=== PATIENT | female | born 1945 | race Caucasian/White ===

== ENCOUNTER 2016-08-04 16:26 | Emergency (ER) | payer MEDICARE, OTHER ==
[~2016-08-04] VITALS: Ht 160 cm; Wt 76.4 kg
[~2016-08-04 16:26] MED LIST: 00186-0372-20 IH; ADVAIR IH; ALBUTEROL0.83 MG/ML IH; ANTIVERT 25MG25 MG PO; ASTELIN NASAL S34 ML NAS; ASTELIN NASAL S34 ML NS; AZO YEAST 6 X-61 TAB PO; AZO-STANDARD95 MG PO; BENADRYL25 M2 PO; BLOOD PRESSURE; CALAN120 MG PO; CALCIUM PLUS1 TA1 PO; CATAPRES-TTS 10.1 M1 TD; CETIRIZINE; CLOTRIMAZOLE RC; CRANBERRY FRUI405 MG PO; DIOVAN 160MG160 MG PO; DOXEPIN; GLUCOPHAGE XR500 M1 PO; LASIX 20MG TABL20 MG PO; LORTAB PO; MELOXICAM; METFORMIN; MOBIC 7.5MG7.5 MG PO; NASAL 15 ML15 M1 INH; NEXIUM 40MG40 MG PO; NEXIUM PO; NORCO; NORCO 325 MG-51 TAB PO; NORCO 325 MG-7.1 TAB PO; PERCOCET 325 MG1 TA2 PO; PREMARIN 0.60.625 M1 PO; PROAIR HFA0.09 MG/AC IH; PROBIOTIC FORMU1 CAP PO; PROVENTIL0.09 MG/A1 IH; RHINOCORT0.032 MG/1 NS; RT ADVAIR 128 DISKUS IH; SINEQUAN 1010 MG/CAP PO; SINEQUAN 1100 MG/CAP PO; SINGULAIR; SINGULAIR 110 MG/TAB PO; ULTRAM 50MG TAB50 MG PO; URELLE PO; VERELAN PM200 MG PO; VITAMIN D1000 IU PO; ZITHROMAX Z PA250 MG PO; ZYRTEC 10MG10 MG PO; ZYRTEC ALLERGY10 MG PO; [UNRECOGNIZED DRUG - OTHER] PO
[2016-08-04 16:28] VITALS: BP 119/59; PULSE 96; TEMP 100.6
[2016-08-04 18:47] LABS: BASO % 0.6 % (0.0-2.0); GRAN # 5.3 (1.4-6.5); GRAN % 75.1 % (42.2-75.2); LYMPH # 0.8 (1.2-3.4); LYMPH % 10.9 % (20.0-51.0); MEAN CELL VOLUME 86 fl (80.0-100.0); MEAN CORPUSCULAR HGB CONC 32 g/dl (33.0-37.0); MEAN PLATELET VOLUME 11.2 fl (7.4-10.4); MONO # 0.9 (0.1-0.6); PLATELET COUNT 177 K/mm3 (130-400); RED BLOOD COUNT 3.98 M/mm3 (4.10-5.30); REDCELL DISTRIBUTION WIDTH-CV 14.3 % (11.5-14.5); WHITE BLOOD COUNT 7.1 K/mm3 (4.8-10.8)
[2016-08-04 18:54] LABS: ADJUSTED CALCIUM 9.2 mg/dL (8.4-10.2); ALBUMIN 3.7 gm/dL (3.5-5.0); BILIRUBIN,TOTAL 0.6 mg/dL (0.0-1.0); CREATININE, serum 1.44 mg/dL (0.52-1.25); POTASSIUM 3.4 mmol/L (3.4-5.0); TOTAL PROTEIN 6.8 gm/dL (6.4-8.2)
[2016-08-04 18:56] LABS: HEMATOCRIT 34.4 % (37.0-47.0); HEMOGLOBIN 11.1 g/dl (12.5-16.0); MEAN CORPUSCULAR HEMOGLOBIN 28 pg (27.0-31.0)
[2016-08-04] MEDS ORDERED: MEDROL 4MG DOSPA4 MG PO (21:41)
[2016-08-04] MEDS ORDERED: TAMIFLU 75MG75 MG PO (21:42)
[2016-08-04] MEDS ORDERED: TUSS PO (21:42)
== END 2016-08-04 22:08 | disposition home or self-care (01) ==
LOC: COL.ER 16:26
PROVIDERS: Emergency Medicine
DX: J44.0 Chronic obstructive pulmonary disease with (acute) lower respiratory infection (principal); J20.9 Acute bronchitis, unspecified; J44.1 Chronic obstructive pulmonary disease with (acute) exacerbation; E11.9 Type 2 diabetes mellitus without complications; I10 Essential (primary) hypertension
CPT/HCPCS: J0696; J7030

== ENCOUNTER 2016-08-11 14:57 | Inpatient (IN) | payer MEDICARE, OTHER ==
[2016-08-11] VITALS (131 sets, daily range): BP systolic 139; BP diastolic 65; PULSE 83; TEMP 97.5; O2SAT 85–100
[~2016-08-11] VITALS: Ht 162.6 cm; Wt 81.1 kg
[~2016-08-11 14:57] MED LIST changes: +MEDROL 4MG DOSPA4 MG PO; +TAMIFLU 75MG75 MG PO; +TUSS PO
[2016-08-11 15:48] LABS: ANION GAP 16 mmol/L (7-16); BLOOD UREA NITROGEN 28 mg/dL (7-17); CALCIUM 9.3 mg/dL (8.4-10.2); CARBON DIOXIDE 22 mmol/L (22-30); CHLORIDE 99 mmol/L (98-107); CREATININE, serum 1.98 mg/dL (0.52-1.25); GLUCOSE 150 mg/dL (74-106); HEMATOCRIT 42.6 % (37.0-47.0); HEMOGLOBIN 13.9 g/dl (12.5-16.0); MEAN CELL VOLUME 86 fl (80.0-100.0); MEAN CORPUSCULAR HEMOGLOBIN 28 pg (27.0-31.0); MEAN CORPUSCULAR HGB CONC 33 g/dl (33.0-37.0); MEAN PLATELET VOLUME 10.7 fl (7.4-10.4); PLATELET COUNT 332 K/mm3 (130-400); POTASSIUM 3.6 mmol/L (3.4-5.0); RED BLOOD COUNT 4.97 M/mm3 (4.10-5.30); REDCELL DISTRIBUTION WIDTH-CV 14.4 % (11.5-14.5); SODIUM 136 mmol/L (137-145); WHITE BLOOD COUNT 12.3 K/mm3 (4.8-10.8)
[2016-08-11 15:54] LABS: ADD PATHOLOGY DIFF REVIEW NO
[2016-08-11 16:00] LABS: B-TYPE NATRIURETIC PEPTIDE 1450 pg/mL (0-125)
[2016-08-11 16:04] LABS: TROPONIN-I < 0.012 ng/mL (0.000-0.034)
[2016-08-11 16:35] LABS: VENOUS BLOOD GAS BE -3.9 (-4-4); VENOUS BLOOD GAS SAO2 32.5 % (60-80)
[2016-08-11 16:37] LABS: VENOUS BLOOD GAS SITE VENIPUNCTURE
[2016-08-11 17:16] LABS: BAND 12 % (0-10); EOSINOPHIL 2 % (0-4); METAMYELOCYTE 2 % (0-0); NEUTROPHILS 53 % (42.0-75.2); TOTAL CELLS COUNTED 100
[2016-08-11 17:18] LABS: HYPOCHROMIA 1+
[2016-08-11 17:24] LABS: PH 5 (5-8); SQUAMOUS EPITHELIAL 0-2 /hpf; URINE APPEARANCE Clear; URINE BACTERIA None Seen /hpf; URINE BILIRUBIN Negative (NEGATIVE); URINE BLOOD Negative (NEGATIVE); URINE COLOR Yellow; URINE GLUCOSE Negative (NEGATIVE); URINE KETONE Negative (NEGATIVE); URINE RBC 0-2 /hpf; URINE UROBILINOGEN Negative (NEGATIVE)
[2016-08-12] VITALS (574 sets, daily range): BP systolic 135–161; BP diastolic 58–98; PULSE 64–83; TEMP 98–98.8; O2SAT 88–100
[2016-08-12 06:18] LABS: BASO % 0.4 % (0.0-2.0); GRAN # 8.3 (1.4-6.5); HEMATOCRIT 39.8 % (37.0-47.0); HEMOGLOBIN 12.7 g/dl (12.5-16.0); LYMPH # 1.6 (1.2-3.4); LYMPH % 14.4 % (20.0-51.0); MEAN CELL VOLUME 88 fl (80.0-100.0); MEAN CORPUSCULAR HEMOGLOBIN 28 pg (27.0-31.0); MEAN CORPUSCULAR HGB CONC 32 g/dl (33.0-37.0); MEAN PLATELET VOLUME 10.4 fl (7.4-10.4); MONO # 0.1 (0.1-0.6); MONO % 1.1 % (1.7-9.3); PLATELET COUNT 308 K/mm3 (130-400); RED BLOOD COUNT 4.55 M/mm3 (4.10-5.30); REDCELL DISTRIBUTION WIDTH-CV 14.5 % (11.5-14.5); WHITE BLOOD COUNT 10.9 K/mm3 (4.8-10.8)
[2016-08-12 06:29] LABS: CREATININE, serum 1.04 mg/dL (0.52-1.25); POTASSIUM 4.1 mmol/L (3.4-5.0)
[2016-08-13 00:16] VITALS: BP 137/39; PULSE 77; TEMP 98.5
[2016-08-13 02:34] VITALS: BP 119/90; PULSE 75; TEMP 97.7
[2016-08-13 08:06] VITALS: BP 143/46; PULSE 63; TEMP 97.1
[2016-08-13 11:44] VITALS: BP 126/49; PULSE 78; TEMP 98.2
[2016-08-13 15:42] VITALS: BP 155/66; PULSE 88; TEMP 98.8
[2016-08-13 18:02] LABS: CALCIUM 9.1 mg/dL (8.4-10.2); CREATININE, serum 0.96 mg/dL (0.52-1.25)
== END 2016-08-13 16:52 | disposition home or self-care (01) | DRG 682 ==
LOC: COL.ER 14:57 → IMCU 16:44 → MEDICAL 08-12 19:52
PROVIDERS: Emergency Medicine; Internal Medicine Cardiovascular Disease; Nurse Practitioner Family
DX: N17.9 Acute kidney failure, unspecified (principal); R57.1 Hypovolemic shock; E87.2 Acidosis; M79.7 Fibromyalgia; J45.909 Unspecified asthma, uncomplicated; I10 Essential (primary) hypertension; K58.9 Irritable bowel syndrome, unspecified; E11.9 Type 2 diabetes mellitus without complications
CPT/HCPCS: 99223-AI; 99233-AI; 99239; A9284; J0456; J0696; J1644; J1815; J2930; J7030; J7050

== ENCOUNTER 2016-09-29 09:15 | Day surgery (SDC) | payer MEDICARE, OTHER ==
[~2016-09-29] VITALS: Ht 162.6 cm; Wt 72.5 kg
[2016-09-29 10:00] VITALS: BP 152/66; PULSE 97; TEMP 97.7
[2016-09-29] MEDS ORDERED: CALAN80 MG PO (10:10)
[2016-09-29] MEDS ORDERED: CATAPRES 0.1MG0.1 MG PO (10:10)
[2016-09-29] MEDS ORDERED: PRIL40 PO (10:12)
[2016-09-29] MEDS ORDERED: SUDAFED30 MG PO (10:13)
[2016-09-29] MEDS ORDERED: ALBUTEROL1.25 MG/3 IH (10:16)
[2016-09-29] MEDS ORDERED: URELLE PO (10:17)
[2016-09-29] MEDS ORDERED: COMPOUND DRUG (10:23)
[2016-09-29] MEDS ORDERED: CALCIUM 600MG+D1 TAB PO (10:29)
[2016-09-29 11:10] VITALS: BP 144/63; PULSE 95
[2016-09-29 11:25] VITALS: BP 159/52; PULSE 87
[2016-09-29 11:30] LABS: BASO # 0.1 (0.0-0.2); BASO % 0.7 % (0.0-2.0); EOS % 0.4 % (0-4.0); GRAN # 7.2 (1.4-6.5); GRAN % 74.9 % (42.2-75.2); HEMOGLOBIN 12.3 g/dl (12.5-16.0); LYMPH # 1.5 (1.2-3.4); LYMPH % 15.4 % (20.0-51.0); MEAN CELL VOLUME 88 fl (80.0-100.0); MEAN CORPUSCULAR HEMOGLOBIN 28 pg (27.0-31.0); MEAN CORPUSCULAR HGB CONC 32 g/dl (33.0-37.0); MEAN PLATELET VOLUME 10.3 fl (7.4-10.4); MONO # 0.7 (0.1-0.6); MONO % 7.3 % (1.7-9.3); PLATELET COUNT 282 K/mm3 (130-400); RED BLOOD COUNT 4.45 M/mm3 (4.10-5.30); REDCELL DISTRIBUTION WIDTH-CV 15.7 % (11.5-14.5); WHITE BLOOD COUNT 9.6 K/mm3 (4.8-10.8)
[2016-09-29 11:40] VITALS: BP 165/52; PULSE 87
[2016-09-29 11:55] VITALS: BP 148/48; PULSE 86
[2016-09-29 12:03] LABS: ADJUSTED CALCIUM 9.8 mg/dL (8.4-10.2); ALBUMIN 3.9 gm/dL (3.5-5.0); BILIRUBIN,TOTAL 0.7 mg/dL (0.0-1.0); CALCIUM 9.7 mg/dL (8.4-10.2); CREATININE, serum 0.93 mg/dL (0.52-1.25); POTASSIUM 4.5 mmol/L (3.4-5.0); TOTAL PROTEIN 7.1 gm/dL (6.4-8.2)
[2016-09-29 13:22] VITALS: BP 143/73; PULSE 80
== END 2016-09-29 13:00 | disposition home or self-care (01) ==
LOC: SDCO 09:15
PROVIDERS: Internal Medicine Pulmonary Disease
DX: J98.11 Atelectasis (principal); J32.9 Chronic sinusitis, unspecified; J45.909 Unspecified asthma, uncomplicated; Z87.01 Personal history of pneumonia (recurrent); M79.7 Fibromyalgia; I10 Essential (primary) hypertension; K21.9 Gastro-esophageal reflux disease without esophagitis; E11.9 Type 2 diabetes mellitus without complications; M19.90 Unspecified osteoarthritis, unspecified site; K58.9 Irritable bowel syndrome, unspecified; G47.33 Obstructive sleep apnea (adult) (pediatric)
CPT/HCPCS: J0456; J2704; J2920; J7050; J7120

== ENCOUNTER → 2017-02-09 | Outpatient (CLI) | payer MEDICARE, OTHER ==
[~2017-02-09] VITALS: Ht 162.6 cm; Wt 72.7 kg
[~2017-02-09] MED LIST changes: +ALBUTEROL1.25 MG/3 IH; +CALAN80 MG PO; +CALCIUM 600MG+D1 TAB PO; +CATAPRES 0.1MG0.1 MG PO; +COMPOUND DRUG; +PRIL40 PO; +SUDAFED30 MG PO
[2017-02-09 11:59] VITALS: BP 135/67; PULSE 85
[2017-02-09 13:06] VITALS: BP 153/67; PULSE 64
== END ==
LOC: COL.RAD 11:40
DX: M48.061 Spinal stenosis, lumbar region without neurogenic claudication (principal); M51.16 Intervertebral disc disorders with radiculopathy, lumbar region

== ENCOUNTER → 2017-08-07 | Outpatient (CLI) | payer MEDICARE, OTHER | LOC: COL.RAD 08:58 | DX: M79.641 Pain in right hand (principal) | CPT/HCPCS: J3301; Q9967 ==

== ENCOUNTER → 2017-08-13 | Outpatient (CLI) | payer MEDICARE, OTHER ==
[~2017-08-13] VITALS: Ht 162.6 cm; Wt 75.6 kg
[2017-08-13 09:00] VITALS: BP 155/70; PULSE 88
[2017-08-13 10:05] VITALS: BP 145/70; PULSE 71
== END ==
LOC: COL.RAD 08:36
DX: M54.5 Low back pain (principal)
CPT/HCPCS: J3301

== ENCOUNTER 2017-12-05 18:20 | Inpatient (IN) | payer MEDICARE, OTHER ==
[~2017-12-05] VITALS: Ht 162.6 cm; Wt 80.3 kg
[2017-12-05 18:53] LABS: BASO # 0.1 (0.0-0.2); BASO % 0.3 % (0.0-2.0); EOS % 0.1 % (0-4.0); GRAN # 15.3 (1.4-6.5); GRAN % 83.4 % (42.2-75.2); HEMOGLOBIN 13.7 g/dl (12.5-16.0); LYMPH # 1.3 (1.2-3.4); LYMPH % 7.3 % (20.0-51.0); MEAN CELL VOLUME 88 fl (80.0-100.0); MEAN CORPUSCULAR HEMOGLOBIN 29 pg (27.0-31.0); MEAN CORPUSCULAR HGB CONC 33 g/dl (33.0-37.0); MEAN PLATELET VOLUME 10.4 fl (7.4-10.4); MONO # 1.6 (0.1-0.6); MONO % 8.4 % (1.7-9.3); PLATELET COUNT 234 K/mm3 (130-400); RED BLOOD COUNT 4.76 M/mm3 (4.10-5.30); REDCELL DISTRIBUTION WIDTH-CV 13.3 % (11.5-14.5)
[2017-12-05 19:02] LABS: ALBUMIN 4.2 gm/dL (3.5-5.0); BILIRUBIN,TOTAL 0.8 mg/dL (0.0-1.0); CALCIUM 9.6 mg/dL (8.4-10.2); CREATININE, serum 1.3 mg/dL (0.52-1.25); POTASSIUM 4.4 mmol/L (3.4-5.0); TOTAL PROTEIN 7.2 gm/dL (6.4-8.2)
[2017-12-05 19:13] LABS: C-REACTIVE PROTEIN 20.2 mg/dL (0.0-0.9)
[2017-12-05 19:30] LABS: COLLECTION METHOD CLEAN CATCH
[2017-12-05 19:43] LABS: PH 5 (5-8); SQUAMOUS EPITHELIAL 0-2 /hpf; URINE APPEARANCE Clear; URINE BACTERIA None Seen /hpf; URINE BILIRUBIN Negative (NEGATIVE); URINE BLOOD Negative (NEGATIVE); URINE COLOR Yellow; URINE GLUCOSE Negative (NEGATIVE); URINE KETONE Negative (NEGATIVE); URINE LEUKOCYTE ESTERASE 1+ (NEGATIVE); URINE NITRATE Negative (NEGATIVE); URINE PROTEIN(semi-quant) 1+ (NEGATIVE); URINE UROBILINOGEN Negative (NEGATIVE)
[2017-12-05] MEDS ORDERED: CARAFATE 1GM1 G PO (19:45)
[2017-12-05] MEDS ORDERED: ZOCOR 20MG20 MG PO (19:46)
[2017-12-05] MEDS ORDERED: FLEXERIL 1010 MG/TAB PO (19:47)
[2017-12-05] MEDS ORDERED: LIBRAX CAPSULE1 CAP PO (19:47)
[2017-12-05] MEDS ORDERED: URELLE PO (20:02)
[2017-12-05] MEDS ORDERED: PRILOSEC 20MG20 MG PO (20:23)
[2017-12-05] MEDS ORDERED: MUCUS RELIEF400 M1 PO (20:24)
[2017-12-05] MEDS ORDERED: VERELAN PM200 MG PO (20:24)
[2017-12-05] MEDS ORDERED: IMODIUM MULTI-S1 TAB PO (20:25)
[2017-12-05] MEDS ORDERED: SINGULAIR 110 MG/TAB PO (20:25)
[2017-12-05] MEDS ORDERED: THE MEDICINE SH1 T18 PO (20:26)
[2017-12-05] MEDS ORDERED: LASIX 20MG TABL20 MG PO (20:26)
[2017-12-05] MEDS ORDERED: ZYRTEC 10MG10 MG PO (20:26)
[2017-12-05 23:07] VITALS: BP 153/58; PULSE 85; TEMP 99
[2017-12-06] MEDS ORDERED: LIBRAX CAPSULE1 CAP PO (00:04)
[2017-12-06 03:35] VITALS: BP 145/54; PULSE 85; TEMP 98.1
[2017-12-06 06:22] LABS: BASO # 0.1 (0.0-0.2); BASO % 0.6 % (0.0-2.0); EOS # 0.1 (0.0-0.7); EOS % 0.6 % (0-4.0); GRAN % 79.9 % (42.2-75.2); LYMPH # 1.2 (1.2-3.4); LYMPH % 9.4 % (20.0-51.0); MEAN CELL VOLUME 89 fl (80.0-100.0); MEAN CORPUSCULAR HGB CONC 32 g/dl (33.0-37.0); MEAN PLATELET VOLUME 10.8 fl (7.4-10.4); MONO # 1.1 (0.1-0.6); MONO % 9.1 % (1.7-9.3); PLATELET COUNT 188 K/mm3 (130-400); RED BLOOD COUNT 3.96 M/mm3 (4.10-5.30); REDCELL DISTRIBUTION WIDTH-CV 13.3 % (11.5-14.5)
[2017-12-06 06:29] LABS: HEMATOCRIT 35.4 % (37.0-47.0); HEMOGLOBIN 11.3 g/dl (12.5-16.0); MEAN CORPUSCULAR HEMOGLOBIN 29 pg (27.0-31.0)
[2017-12-06 07:19] LABS: CALCIUM 8.5 mg/dL (8.4-10.2)
[2017-12-06 08:02] VITALS: BP 130/51; PULSE 76; TEMP 97.9
[2017-12-06 11:43] VITALS: BP 140/45; PULSE 78; TEMP 98
[2017-12-06 16:00] VITALS: BP 142/51; PULSE 80; TEMP 97.4
[2017-12-06 20:30] VITALS: BP 154/52; PULSE 87; TEMP 98.2
[2017-12-07 00:48] VITALS: BP 131/48; PULSE 79; TEMP 98
[2017-12-07 05:12] VITALS: BP 133/53; PULSE 70
[2017-12-07 07:01] LABS: BASO # 0.1 (0.0-0.2); BASO % 0.7 % (0.0-2.0); EOS # 0.2 (0.0-0.7); EOS % 2.6 % (0-4.0); GRAN # 5.2 (1.4-6.5); GRAN % 71.4 % (42.2-75.2); HEMOGLOBIN 10.9 g/dl (12.5-16.0); LYMPH # 1.2 (1.2-3.4); LYMPH % 15.8 % (20.0-51.0); MEAN CELL VOLUME 91 fl (80.0-100.0); MEAN CORPUSCULAR HEMOGLOBIN 29 pg (27.0-31.0); MEAN CORPUSCULAR HGB CONC 32 g/dl (33.0-37.0); MONO # 0.7 (0.1-0.6); MONO % 8.9 % (1.7-9.3); PLATELET COUNT 174 K/mm3 (130-400); RED BLOOD COUNT 3.82 M/mm3 (4.10-5.30); REDCELL DISTRIBUTION WIDTH-CV 13.3 % (11.5-14.5)
[2017-12-07 07:02] LABS: HEMATOCRIT 34.6 % (37.0-47.0)
[2017-12-07 07:17] LABS: CALCIUM 8.3 mg/dL (8.4-10.2); CREATININE, serum 0.88 mg/dL (0.52-1.25)
[2017-12-07 08:01] VITALS: BP 148/63; PULSE 80; TEMP 97.6
[2017-12-07 12:18] VITALS: BP 128/50; PULSE 68; TEMP 98
[2017-12-07 16:22] VITALS: BP 147/66; PULSE 68; TEMP 98.2
[2017-12-07 19:57] VITALS: BP 153/59; PULSE 69; TEMP 98.3
[2017-12-08 00:44] VITALS: BP 152/60; PULSE 70; TEMP 98.4
[2017-12-08 04:20] VITALS: BP 137/58; PULSE 62; TEMP 97.8
[2017-12-08 08:03] VITALS: BP 143/73; PULSE 66; TEMP 97.5
[2017-12-08] MEDS ORDERED: NYSTATIN OR100 MU/ML PO (11:38)
[2017-12-08] MEDS ORDERED: CEFTIN500 MG PO (11:38)
[2017-12-08] MEDS ORDERED: FLAGYL500 MG PO (11:38)
== END 2017-12-08 14:00 | disposition home or self-care (01) | DRG 394 ==
LOC: COL.ER 18:20 → MEDICAL 20:41
PROVIDERS: Family Medicine; Hospitalist; Nurse Practitioner Family
DX: K55.9 Vascular disorder of intestine, unspecified (principal); A09 Infectious gastroenteritis and colitis, unspecified; N17.9 Acute kidney failure, unspecified; N39.0 Urinary tract infection, site not specified; E87.1 Hypo-osmolality and hyponatremia; K82.8 Other specified diseases of gallbladder
CPT/HCPCS: 99222-AI; 99232-AI; 99238; C9113; G0378; J0696; J1170; J2185; J2550; J3370; J7030; J7050

== ENCOUNTER 2017-12-28 08:27 | Day surgery (SDC) | payer MEDICARE, OTHER ==
[~2017-12-28] VITALS: Ht 162.6 cm; Wt 75.5 kg
[~2017-12-28 08:27] MED LIST changes: +CARAFATE 1GM1 G PO; +CEFTIN500 MG PO; +FLAGYL500 MG PO; +FLEXERIL 1010 MG/TAB PO; +IMODIUM MULTI-S1 TAB PO; +LIBRAX CAPSULE1 CAP PO; +MUCUS RELIEF400 M1 PO; +NYSTATIN OR100 MU/ML PO; +THE MEDICINE SH1 T18 PO; +ZOCOR 20MG20 MG PO
[2017-12-28] MEDS ORDERED: ALBUTEROL0.83 MG/ML IH (08:59)
[2017-12-28] MEDS ORDERED: BENTYL 10MG10 MG/CAP PO (09:10)
[2017-12-28] MEDS ORDERED: VANCOCIN H125 MG/CAP PO (09:10)
[2017-12-28 10:50] VITALS: BP 173/97; PULSE 90; TEMP 97.4
[2017-12-28 11:40] VITALS: BP 169/87; PULSE 80; TEMP 97.2
[2017-12-28 11:55] VITALS: BP 166/87; PULSE 79
[2017-12-28 12:10] VITALS: BP 176/93; PULSE 87
[2017-12-28 12:25] VITALS: BP 176/77; PULSE 83
[2017-12-28 12:40] VITALS: BP 170/70; PULSE 90
== END 2017-12-28 13:00 | disposition home or self-care (01) ==
LOC: SDCO 08:27
DX: K51.80 Other ulcerative colitis without complications (principal); K64.0 First degree hemorrhoids; K57.30 Diverticulosis of large intestine without perforation or abscess without bleeding; K63.89 Other specified diseases of intestine; K21.9 Gastro-esophageal reflux disease without esophagitis; G89.29 Other chronic pain; G47.33 Obstructive sleep apnea (adult) (pediatric); J45.909 Unspecified asthma, uncomplicated; I10 Essential (primary) hypertension; M79.7 Fibromyalgia; Z86.010 Personal history of colon polyps; Z88.1 Allergy status to other antibiotic agents; Z88.2 Allergy status to sulfonamides; Z88.0 Allergy status to penicillin; Z88.6 Allergy status to analgesic agent; Z88.3 Allergy status to other anti-infective agents
CPT/HCPCS: J2704; J7030

== ENCOUNTER → 2018-05-17 | Outpatient (CLI) | payer MEDICARE, OTHER ==
[~2018-05-17] MED LIST changes: +BENTYL 10MG10 MG/CAP PO; +VANCOCIN H125 MG/CAP PO
== END ==
LOC: COL.RAD 13:24
DX: M79.641 Pain in right hand (principal)
CPT/HCPCS: J3301; Q9967

== ENCOUNTER → 2018-05-24 | Outpatient (CLI) | payer MEDICARE, OTHER ==
[~2018-05-24] VITALS: Ht 162.6 cm; Wt 74.9 kg
[~2018-05-24] MED LIST changes: +AZO-CRANBERRY450 MG PO; +COZAAR100 MG PO
[2018-05-24 13:35] VITALS: BP 144/67; PULSE 77
--- NOTE | 2018-05-24 14:39 | NUR ---
PT TAKEN TO POV IN WHEELCHAIR. NO PAIN, NO DIFFICULTY WITH AMBULATION.
== END ==
LOC: COL.RAD 13:17
DX: M48.061 Spinal stenosis, lumbar region without neurogenic claudication (principal); M51.36 Other intervertebral disc degeneration, lumbar region
CPT/HCPCS: J3301

== ENCOUNTER 2018-05-30 13:53 | Emergency (ER) | payer MEDICARE, OTHER ==
[~2018-05-30] VITALS: Ht 162.6 cm; Wt 75.9 kg
[2018-05-30 14:06] VITALS: BP 144/65; TEMP 98.7
[2018-05-30 16:02] VITALS: PULSE 91
== END 2018-05-30 16:02 | disposition home or self-care (01) ==
LOC: COL.ER 13:53
DX: S40.011A Contusion of right shoulder, initial encounter (principal); S70.01XA Contusion of right hip, initial encounter; S60.211A Contusion of right wrist, initial encounter; J45.909 Unspecified asthma, uncomplicated; M79.7 Fibromyalgia; W00.0XXA Fall on same level due to ice and snow, initial encounter; Y92.481 Parking lot as the place of occurrence of the external cause

== ENCOUNTER 2018-12-01 13:04 | Emergency (ER) | payer MEDICARE, OTHER ==
[~2018-12-01] VITALS: Ht 157.5 cm; Wt 79.5 kg
[2018-12-01 13:13] VITALS: TEMP 99.4
[2018-12-01 14:04] LABS: HEMOGLOBIN 11.8 g/dl (12.5-16.0); MEAN CELL VOLUME 89 fl (80.0-100.0); MEAN CORPUSCULAR HEMOGLOBIN 28 pg (27.0-31.0); MEAN CORPUSCULAR HGB CONC 32 g/dl (33.0-37.0); MEAN PLATELET VOLUME 10.4 fl (7.4-10.4); PLATELET COUNT 241 K/mm3 (130-400); RED BLOOD COUNT 4.15 M/mm3 (4.10-5.30); REDCELL DISTRIBUTION WIDTH-CV 13.2 % (11.5-14.5)
[2018-12-01 14:14] LABS: ALANINE AMINOTRANSFERASE 16 U/L (9-52); ALBUMIN 3.7 gm/dL (3.5-5.0); ALKALINE PHOSPHATASE 125 U/L (50-136); ANION GAP 10 mmol/L (7-16); AST,SGOT 23 U/L (15-37); BILIRUBIN,TOTAL 0.2 mg/dL (0.0-1.0); BLOOD UREA NITROGEN 22 mg/dL (7-17); C-REACTIVE PROTEIN 1.2 mg/dL (0.0-0.9); CALCIUM 8.9 mg/dL (8.4-10.2); CARBON DIOXIDE 23 mmol/L (22-30); CHLORIDE 99 mmol/L (98-107); CREATININE, serum 1.04 (0.52-1.25); GLUCOSE 98 mg/dL (74-106); LIPASE 431 U/L (23-300); POTASSIUM 4.7 mmol/L (3.4-5.0); SODIUM 132 mmol/L (137-145); TOTAL PROTEIN 6.3 gm/dL (6.4-8.2)
[2018-12-01 14:16] LABS: SALICYLATE < 1.0 mg/dL
[2018-12-01 14:26] LABS: TROPONIN-I < 0.012 ng/mL (0.000-0.035)
[2018-12-01 14:41] LABS: COLLECTION METHOD CLEAN CATCH
[2018-12-01 14:50] LABS: PH 6 (5-8); SQUAMOUS EPITHELIAL None Seen /hpf; URINE APPEARANCE Clear; URINE BACTERIA None Seen /hpf; URINE BILIRUBIN Negative (NEGATIVE); URINE BLOOD Negative (NEGATIVE); URINE COLOR Straw; URINE GLUCOSE Negative (NEGATIVE); URINE KETONE Negative (NEGATIVE); URINE LEUKOCYTE ESTERASE Negative (NEGATIVE); URINE NITRATE Negative (NEGATIVE); URINE PROTEIN(semi-quant) Negative (NEGATIVE); URINE RBC 0-2 /hpf; URINE UROBILINOGEN Negative (NEGATIVE)
[2018-12-01] MEDS ORDERED: VOLTAREN GEL 1%1 TU TP (15:01)
[2018-12-01] MEDS ORDERED: ANTIVERT 12.512.5 MG PO (15:35)
[2018-12-01 15:54] VITALS: BP 141/61; PULSE 74
[2018-12-01 16:34] LABS: BAND 2 % (0-10); EOSINOPHIL 4 % (0-4); LYMPHOCYTE 12 % (20.0-51.0); NEUTROPHILS 80 % (42.0-75.2); PLATELET ESTIMATE NORMAL (NORMAL)
[2018-12-06] MEDS ORDERED: VANCOCIN H125 MG/CAP PO (02:06)
== END 2018-12-01 15:54 | disposition home or self-care (01) ==
LOC: COL.ER 13:04
PROVIDERS: Physician Assistant
DX: R42 Dizziness and giddiness (principal); I10 Essential (primary) hypertension; J45.909 Unspecified asthma, uncomplicated; K21.9 Gastro-esophageal reflux disease without esophagitis
CPT/HCPCS: J7030; Q9967

== ENCOUNTER → 2018-12-05 | Outpatient (CLI) | payer MEDICARE, OTHER ==
[~2018-12-05] MED LIST changes: +ANTIVERT 12.512.5 MG PO; +VOLTAREN GEL 1%1 TU TP
== END ==
LOC: ZCOL.LAB 21:33
DX: Z01.89 Encounter for other specified special examinations (principal)

== ENCOUNTER → 2019-02-22 | Outpatient (CLI) | payer MEDICARE, OTHER | LOC: COL.RAD 14:15 | DX: N30.21 Other chronic cystitis with hematuria (principal); N26.1 Atrophy of kidney (terminal) ==

== ENCOUNTER → 2019-04-01 | Outpatient (CLI) | payer MEDICARE, OTHER ==
[~2019-04-01] VITALS: Ht 157.5 cm; Wt 77.7 kg
[2019-04-01 10:05] VITALS: BP 139/70; PULSE 78
[2019-04-01 11:00] VITALS: BP 134/70; PULSE 66
--- NOTE | 2019-04-01 11:23 | NUR ---
Discharge instructions gone over with pt. Pt verbalized understanding of instructions. Copy given to pt.
--- NOTE | 2019-04-01 11:30 | NUR ---
Pt down to patient entrance to await ride. Pt up and into car without assistance. Denies complaints at this time.
== END ==
LOC: COL.RAD 08:24
DX: M19.041 Primary osteoarthritis, right hand (principal); M54.5 Low back pain
CPT/HCPCS: J3301; Q9967

== ENCOUNTER 2019-06-14 09:08 | Outpatient (CLI) | payer MEDICARE, OTHER ==
[~2019-06-14 09:08] MED LIST changes: +ANUSOL-HC SUPPO25 MG RC; +LEVAQUIN 750MG750 M1 PO; +PROTONIX 40MG T40 MG PO
[2019-06-14 09:50] VITALS: BP 151/61; PULSE 75; TEMP 98.3
--- NOTE | 2019-06-14 12:17 | NUR ---
Pt to CT at this time.
== END 2019-06-14 13:57 | disposition home or self-care (01) ==
LOC: EUO 09:08 → COL.RAD 11:30 → EUO 13:57
DX: K55.039 Acute (reversible) ischemia of large intestine, extent unspecified (principal); G31.9 Degenerative disease of nervous system, unspecified; N18.9 Chronic kidney disease, unspecified; I77.1 Stricture of artery; I70.0 Atherosclerosis of aorta; M41.85 Other forms of scoliosis, thoracolumbar region; Z90.710 Acquired absence of both cervix and uterus
CPT/HCPCS: J7030; Q9967

== ENCOUNTER 2019-07-17 07:25 | Observation (INO) | payer MEDICARE, OTHER ==
[~2019-07-17] VITALS: Ht 160 cm; Wt 76.5 kg
[~2019-07-17 07:25] MED LIST changes: +VERELAN180 MG PO
[2019-07-17 08:55] LABS: HEMOGLOBIN 11.3 g/dl (12.5-16.0); MEAN CELL VOLUME 91 fl (80.0-100.0); MEAN CORPUSCULAR HEMOGLOBIN 28 pg (27.0-31.0); MEAN CORPUSCULAR HGB CONC 31 g/dl (33.0-37.0); MEAN PLATELET VOLUME 10.7 fl (7.4-10.4); PLATELET COUNT 318 K/mm3 (130-400); RED BLOOD COUNT 3.99 M/mm3 (4.10-5.30); REDCELL DISTRIBUTION WIDTH-CV 14.3 % (11.5-14.5)
[2019-07-17 08:57] LABS: HEMATOCRIT 36.3 % (37.0-47.0)
[2019-07-17 09:04] LABS: BILIRUBIN,TOTAL 0.4 mg/dL (0.0-1.0); C-REACTIVE PROTEIN 1.5 mg/dL (0.0-0.9); CALCIUM 9.5 mg/dL (8.4-10.2); CREATININE, serum 1.27 (0.52-1.25); POTASSIUM 4.8 mmol/L (3.4-5.0); TOTAL PROTEIN 7.1 gm/dL (6.4-8.2)
[2019-07-17] MEDS ORDERED: CARAFATE 1GM1 G PO (09:10)
[2019-07-17 09:11] LABS: COLLECTION METHOD CLEAN CATCH
[2019-07-17] MEDS ORDERED: PLAVIX 75MG TAB75 MG PO (09:16)
[2019-07-17 09:17] LABS: PH 6 (5-8); SQUAMOUS EPITHELIAL 0-2 /hpf; URINE APPEARANCE Clear; URINE BACTERIA None Seen /hpf; URINE BILIRUBIN Negative (NEGATIVE); URINE BLOOD Negative (NEGATIVE); URINE COLOR Straw; URINE GLUCOSE Negative (NEGATIVE); URINE KETONE Negative (NEGATIVE); URINE LEUKOCYTE ESTERASE Negative (NEGATIVE); URINE NITRATE Negative (NEGATIVE); URINE PROTEIN(semi-quant) Negative (NEGATIVE); URINE RBC 0-2 /hpf; URINE UROBILINOGEN Negative (NEGATIVE)
[2019-07-17] MEDS ORDERED: ASPIRIN E.C. 8181 MG PO (09:17)
[2019-07-17] MEDS ORDERED: TOPROL XL 25MG25 MG (09:18)
[2019-07-17] MEDS ORDERED: BENICAR40 MG PO (09:21)
[2019-07-17] MEDS ORDERED: GAVISCON 80 MG-1 CT1 PO (09:22)
[2019-07-17 09:34] LABS: BAND 8 % (0-10); EOSINOPHIL 2 % (0-4); LYMPHOCYTE 4 % (20.0-51.0); NEUTROPHILS 76 % (42.0-75.2); PLATELET ESTIMATE NORMAL (NORMAL)
[2019-07-17] MEDS ORDERED: DIFLUCAN150 MG PO (10:47)
[2019-07-17] MEDS ORDERED: ZOFRAN ODT4 MG PO (10:47)
[2019-07-17] MEDS ORDERED: AVELOX 400MG T400 MG PO (10:47)
[2019-07-17] MEDS ORDERED: PERCOCET 325 MG1 TA3 PO (10:47)
--- NOTE | 2019-07-17 12:30 | NUR ---
Admission assessment completed, alert/oriente, vital signs stable, reports pain still moderate but much improved after having recieving Dilaudid doses in the ED, abdomen is soft /tender in left upper/lower quadrants, BS +, reports not eating well for last few weeks due to increasing pain, has been having regular bowel movments, denies any N/V or diarrhea, heart RRR, lungS CTA, patient is able to ambulate independently, reviewed and updated meds/allergies/pharmacy, notified of her arrival to the medical floor
[2019-07-17 14:00] VITALS: BP 148/58; PULSE 75
[2019-07-17 15:49] VITALS: BP 159/54; PULSE 74; TEMP 98
[2019-07-17 20:44] VITALS: BP 122/47; PULSE 81; TEMP 98.2
[2019-07-18 00:43] VITALS: BP 135/45; PULSE 75; TEMP 98.3
--- NOTE | 2019-07-18 01:25 | NUR ---
PT IN BED SLEEPING, YL HUNG, PT WOKE UP, ASKED IF SHE WANTED PAIN MEDICATIONS, SHE SAID PAIN WAS AT 6/10 BUT SHE WANTED TO WAIT TO RECIEVE ANYTHING. PT REPORTS KPAD IS HELPING PAIN AND THAT SHE IS ALSO HAVING INDIGESTION. DRAFTING SUPERVISOR NOTIFIED OF PT REQUEST FOR INDIGESTION MEDICATION.
--- NOTE | 2019-07-18 01:30 | NUR ---
PT COMPLAINING OF PAIN 10/10 IN HER RECTUM. THEN PT STATED PAIN IN LLQ, NOT WHERE BLOOD CLOT IS. ADMINISTERED DILAUDID. PT ASSESSMENT UNREMARKABLE. PT GOT UP TO USE RESTROOM, REPORTED BLOOD SPOTTING FROM RECTUM UPON WIPING. PT THEN BACK IN BED, REQUESTED KPAD. PT TABLE AND CALL LIGHT AND PHONE WITHIN REACH. GAVE MEDICATIONS, PROVIDED EXTENSIVE TIME WITH PT AND HER DAUGHTER TO GIVE NAME AND DOSAGE OF EACH MEDICATION WHILE THEY COMPARED THEM TO HER HOME MEDICATIONS. MEMBERSHIP ASSISTANT CALLED ABOUT KPAD.
--- NOTE | 2019-07-18 04:20 | NUR ---
PT STILL COMPLAINING OF EXTREME PAIN DESPITE DILAUDID ADMINISTRATION. 2 NORCO TABS ADMINISTERED.
[2019-07-18 05:49] VITALS: BP 119/41; PULSE 76; TEMP 98.8
[2019-07-18 06:21] LABS: HEMOGLOBIN 10.3 g/dl (12.5-16.0); MEAN CELL VOLUME 92 fl (80.0-100.0); MEAN CORPUSCULAR HEMOGLOBIN 29 pg (27.0-31.0); MEAN CORPUSCULAR HGB CONC 31 g/dl (33.0-37.0); MEAN PLATELET VOLUME 10.9 fl (7.4-10.4); PLATELET COUNT 296 K/mm3 (130-400); REDCELL DISTRIBUTION WIDTH-CV 14.5 % (11.5-14.5)
[2019-07-18 06:29] LABS: ALBUMIN 3.2 gm/dL (3.5-5.0); BILIRUBIN,TOTAL 0.3 mg/dL (0.0-1.0); CALCIUM 8.5 mg/dL (8.4-10.2); CREATININE, serum 0.97 (0.52-1.25); POTASSIUM 4.2 mmol/L (3.4-5.0)
[2019-07-18 06:33] LABS: HEMATOCRIT 33.2 % (37.0-47.0)
[2019-07-18 07:01] LABS: BAND 9 % (0-10); BASOPHIL 1 % (0-2); EOSINOPHIL 2 % (0-4); LYMPHOCYTE 11 % (20.0-51.0); METAMYELOCYTE 1 % (0-0); NEUTROPHILS 69 % (42.0-75.2); PLATELET ESTIMATE NORMAL (NORMAL)
[2019-07-18 07:02] LABS: HYPOCHROMIA 1+
--- NOTE | 2019-07-18 09:21 | NUR ---
Initial visit; Patient remembers Hand Braille Transcriber from former visit and thanked her for coming in and offering prayer and God's blessings. Hand Braille Transcriber will follow up.
--- NOTE | 2019-07-18 09:30 | NUR ---
Pt states she is having LLQ pain rating it a 10/10. Dilaudid administered and KPad reviewed. Pt ambulated to the bathroom well with stand by assist. Pt noted small bowel movement.
[2019-07-18 09:33] VITALS: BP 106/41; PULSE 70; TEMP 98.2
[2019-07-18 11:27] VITALS: BP 105/44; PULSE 68; TEMP 97.8
--- NOTE | 2019-07-18 11:30 | NUR ---
Pt at 90% on room air at this time. Pt placed on 2L NC, pt is now at 94% with 2L.
--- NOTE | 2019-07-18 15:18 | NUR ---
RA SPO2 A SLEEP 85%. PACED BACK ON 2 LPM NC 92% RN NOTIFIED
--- NOTE | 2019-07-18 15:42 | NUR ---
Patient is alert and oriented. 1+ edema in upper extremity. complains of pain in the rectum and left side abdomen that started in May. Paatient said she was diagnosed with blood clot in the artery near her stomach in May alongside colon infection. currently on MetroniDazole. Patient is not able to eat solid food at this moment due to severe pain. Patient recieved dilaudid and norco one time on this shift patient is currently on clear liquid. Patient have a new order for suppository hudrocortisol for rectum pain as need. administered one time on this shift. patient refused verapamil this morning because systolic was <110. 0.9%NS was discontinued by doctor Yi this morning. patient is currently resting in bed.
[2019-07-18 15:57] VITALS: BP 137/46; PULSE 79; TEMP 98.8
--- NOTE | 2019-07-18 16:36 | NUR ---
SW met with the patient to discuss discharge plan. The patient lives alone in [place]. She states that her daughter, Araseli Estrella (ph#[phone]), also lives here in [place]. She reports independence with ADLs and does not have any DME. The patient's PCP is Dr. Radha Tubbs and she receives her medications at [facility]. She reports occasional difficulties affording her meds. SW discussed [facility] and [facility]. The patient's advanced directives are in EMR. Her DPOA-HC is her daughter, Araseli. The patient plans to return back home upon discharge. No other additional needs at this time, but SW to continue to follow as needed.
[2019-07-18 20:00] VITALS: BP 131/45; PULSE 71; TEMP 98.5
--- NOTE | 2019-07-18 23:05 | NUR ---
PT REPORTING EXTREME PAIN 10/10. PT TOOK ORAL MEDICATIONS AND DILAUDID WAS ADMINISTERED. BED IN LOWEST POSITION, TABLE AT BEDSIDE, CALL LIGHT WITHIN REACH, WATER AT BEDSIDE. PT KPAD WATER BIN FULL, CHECKED PER PT REQUEST. DENIES ANY OTHER NEEDS AT THIS TIME.
[2019-07-19 00:40] VITALS: BP 112/45; PULSE 67; TEMP 98
--- NOTE | 2019-07-19 00:49 | NUR ---
PT'S OXYGEN INC TO 2L DUE TO INABILITY TO SAT ABOVE 89%.
[2019-07-19 04:06] VITALS: BP 121/52; PULSE 65; TEMP 97.7
[2019-07-19 06:56] LABS: BILIRUBIN,TOTAL 0.3 mg/dL (0.0-1.0); CALCIUM 8.5 mg/dL (8.4-10.2); CREATININE, serum 1.1 (0.52-1.25); POTASSIUM 4.5 mmol/L (3.4-5.0); TOTAL PROTEIN 5.8 gm/dL (6.4-8.2)
[2019-07-19 06:59] LABS: BASO # 0.1 (0.0-0.2); BASO % 0.9 % (0.0-2.0); EOS # 0.6 (0.0-0.7); EOS % 5.1 % (0-4.0); GRAN # 7.4 (1.4-6.5); GRAN % 67.2 % (42.2-75.2); LYMPH # 1.4 (1.2-3.4); LYMPH % 12.7 % (20.0-51.0); MEAN CELL VOLUME 93 fl (80.0-100.0); MEAN CORPUSCULAR HGB CONC 31 g/dl (33.0-37.0); MEAN PLATELET VOLUME 10.6 fl (7.4-10.4); MONO # 1.5 (0.1-0.6); MONO % 13.5 % (1.7-9.3); PLATELET COUNT 285 K/mm3 (130-400); RED BLOOD COUNT 3.48 M/mm3 (4.10-5.30); REDCELL DISTRIBUTION WIDTH-CV 14.4 % (11.5-14.5)
[2019-07-19 07:05] LABS: HEMATOCRIT 32.4 % (37.0-47.0); HEMOGLOBIN 9.9 g/dl (12.5-16.0); MEAN CORPUSCULAR HEMOGLOBIN 28 pg (27.0-31.0)
--- NOTE | 2019-07-19 07:34 | NUR ---
PT SLEPT MOST OF THE NIGHT, ASKED FOR PAIN MEDICATION ONCE, CLAIMS THE PAIN IS MUCH MORE MANAGEABLE NOW, TALKING ABOUT WANTING TO GO HOME. BED IN LOWEST POSITION, CALL LIGHT WITHIN REACH, TABLE AT BEDSIDE WITH ICE WATER. NO OTHER NEEDS AT THIS TIME.
[2019-07-19 08:47] VITALS: BP 114/46; PULSE 64; TEMP 97.5
--- NOTE | 2019-07-19 09:57 | NUR ---
Pt awake and alert upon entry, has C/O pain in her abdominal area, medications given for relief, shift assessments complete, left Pt call light in reach, bed in lowest position.
--- NOTE | 2019-07-19 10:54 | NUR ---
Follow-up visit; Patient thanked Seamless Tube Mill Operator for stopping and offering spiritual care, especially a blessings.
[2019-07-19] MEDS ORDERED: LEVAQUIN 750MG750 M1 PO (12:19)
[2019-07-19] MEDS ORDERED: FLAGYL500 MG PO (12:20)
[2019-07-19] MEDS ORDERED: NORCO 325 MG-101 TAB PO (12:20)
--- NOTE | 2019-07-19 14:16 | NUR ---
Pt discharged to home, discussed discharge packet with PT, answered all questions, escorted Pt to entrance, left with family via private transportation.
== END 2019-07-19 14:18 | disposition home or self-care (01) ==
LOC: COL.ER 07:25 → MEDICAL 12:04
PROVIDERS: Emergency Medicine; Physician Assistant; ADMIT Student in an Organized Health Care Education/Training Program
DX: K57.32 Diverticulitis of large intestine without perforation or abscess without bleeding (principal); K55.9 Vascular disorder of intestine, unspecified; I10 Essential (primary) hypertension; J44.9 Chronic obstructive pulmonary disease, unspecified; R73.03 Prediabetes; Z88.0 Allergy status to penicillin; Z88.2 Allergy status to sulfonamides; Z88.8 Allergy status to other drugs, medicaments and biological substances; Z91.018 Allergy to other foods; Z91.048 Other nonmedicinal substance allergy status; Z79.02 Long term (current) use of antithrombotics/antiplatelets; Z79.82 Long term (current) use of aspirin; Z90.710 Acquired absence of both cervix and uterus; Z96.652 Presence of left artificial knee joint
CPT/HCPCS: 99232-AI; G0378; J1170; J1650; J1956; J2405; J7030; J7040; Q9967

== ENCOUNTER 2019-10-02 05:49 | Inpatient (IN) | payer MEDICARE, OTHER ==
[~2019-10-02] VITALS: Ht 160 cm; Wt 79.0 kg
[~2019-10-02 05:49] MED LIST changes: +ASPIRIN E.C. 8181 MG PO; +AVELOX 400MG T400 MG PO; +BENICAR40 MG PO; +DIFLUCAN150 MG PO; +GAVISCON 80 MG-1 CT1 PO; +NORCO 325 MG-101 TAB PO; +OMNICEF 300MG300 MG PO; +PERCOCET 325 MG1 TA3 PO; +PLAVIX 75MG TAB75 MG PO; +TOPROL XL 25MG25 MG; +ZOFRAN ODT4 MG PO
[2019-10-02 06:25] LABS: HEMATOCRIT 41.1 % (37.0-47.0); HEMOGLOBIN 12.8 g/dl (12.5-16.0); MEAN CELL VOLUME 89 fl (80.0-100.0); MEAN CORPUSCULAR HEMOGLOBIN 28 pg (27.0-31.0); MEAN CORPUSCULAR HGB CONC 31 g/dl (33.0-37.0); MEAN PLATELET VOLUME 10.3 fl (7.4-10.4); PLATELET COUNT 324 K/mm3 (130-400); REDCELL DISTRIBUTION WIDTH-CV 14.3 % (11.5-14.5)
[2019-10-02 06:35] LABS: ALBUMIN 4.6 gm/dL (3.5-5.0); BILIRUBIN,TOTAL 0.4 mg/dL (0.0-1.0); CALCIUM 10.2 mg/dL (8.4-10.2); CREATININE, serum 1.08 (0.52-1.25); POTASSIUM 5.3 mmol/L (3.4-5.0)
[2019-10-02 08:21] LABS: BAND 23 % (0-10); BASOPHIL 1 % (0-2); LYMPHOCYTE 4 % (20.0-51.0); NEUTROPHILS 69 % (42.0-75.2)
[2019-10-02 08:24] LABS: PLATELET ESTIMATE NORMAL (NORMAL)
[2019-10-02 08:26] LABS: HYPOCHROMIA 1+
[2019-10-02 10:46] VITALS: BP 130/58; PULSE 102; TEMP 98.9
[2019-10-02 10:51] VITALS: BP 130/58; PULSE 102; TEMP 98.9
--- NOTE | 2019-10-02 11:00 | NUR ---
Pt admitted to medical unit rm [id number] from ED via WC. Pt awake, drowsy, oriented x 3 but falls asleep quickly during assessment. IVF's infusing per orders through left AC site without s/s of complications. Pt reports pain to left abd, stating "the pain will always be there until my surgery. The pain medicine doesn't really help, just makes me sleepy." No further needs reported. Call light in reach. Bed alarm on.
[2019-10-02 11:44] LABS: CLOSTRIDIUM DIFF A/B POS; CLOSTRIDIUM DIFF A/B INTERP Toxigenic C.diff POS
--- NOTE | 2019-10-02 14:49 | NUR ---
Pt assisted up to bathroom with standby assist, continued drowsiness. Pt reports soreness to left abd whenever awake but falls asleep quickly when in bed, stating, "the pain medicine makes me very sleepy."
[2019-10-02 15:56] VITALS: BP 160/55; PULSE 96; TEMP 98.8
--- NOTE | 2019-10-02 18:30 | NUR ---
Report with JOHNSON Brandt. Pt resting in bed with eyes closed upon entry into , awakens with stimuli and states, "I'm starting to have diarrhea so I'll probably be going to the bathroom a lot over night." IVF's continue per orders. Call light in reach. Bed alarm on.
[2019-10-02 19:03] VITALS: BP 156/61; PULSE 95; TEMP 98.7
--- NOTE | 2019-10-02 20:30 | NUR ---
Initial shift assessment done- states abd pain 02/17- will give Morphine as ordered- Up to bathroom with assist- having loose stools, on contact precautioms for positive c-diff, IV fluids of NS at 125cc/hr, Tele on
[2019-10-03] VITALS (7 sets, daily range): BP systolic 127–156; BP diastolic 42–57; PULSE 82–96; TEMP 97.8–100
--- NOTE | 2019-10-03 01:00 | NUR ---
States abd pain 01/18- will give Morphine as ordered,, has been up to bathroom for small amounts loose/liquid stool every 30min- 1 hour throughout shift
--- NOTE | 2019-10-03 05:30 | NUR ---
Has a temp 100.0, also states abd pain 01/18-was given Morphine at 0400, will give a [place] now to help with temp/pain. Up to bathroom again- only voided this time-
--- NOTE | 2019-10-03 08:15 | NUR ---
Assessment complete. Pt back resting in bed after using the bathroom, answers questions appropriately but drowsy throughout conversation. Pt reports pain to left abd 8 out of 10 but denies pain medication at this time. IVF's infusing per orders through left AC site without s/s of complications. O2 at 2 L/min via NC while pt in bed. No further needs reported. Call light in reach. Bed alarm on.
[2019-10-03 08:19] LABS: MEAN CELL VOLUME 89 fl (80.0-100.0); MEAN CORPUSCULAR HGB CONC 32 g/dl (33.0-37.0); MEAN PLATELET VOLUME 10.7 fl (7.4-10.4); PLATELET COUNT 248 K/mm3 (130-400); RED BLOOD COUNT 3.38 M/mm3 (4.10-5.30); REDCELL DISTRIBUTION WIDTH-CV 14.6 % (11.5-14.5)
[2019-10-03 08:25] LABS: ALBUMIN 2.8 gm/dL (3.5-5.0); BILIRUBIN,TOTAL 0.4 mg/dL (0.0-1.0); CALCIUM 8.1 mg/dL (8.4-10.2); CREATININE, serum 0.81 (0.52-1.25); POTASSIUM 3.9 mmol/L (3.4-5.0); TOTAL PROTEIN 5.6 gm/dL (6.4-8.2)
[2019-10-03 08:28] LABS: HEMATOCRIT 30.2 % (37.0-47.0); HEMOGLOBIN 9.6 g/dl (12.5-16.0); MEAN CORPUSCULAR HEMOGLOBIN 28 pg (27.0-31.0)
[2019-10-03 10:09] LABS: BAND 9 % (0-10); LYMPHOCYTE 7 % (20.0-51.0); NEUTROPHILS 82 % (42.0-75.2); PLATELET ESTIMATE NORMAL (NORMAL)
[2019-10-03 10:10] LABS: TOXIC GRANULATION PRESENT
--- NOTE | 2019-10-03 15:13 | NUR ---
Pt assisted x 1 to bathroom and back to bed, reports pain maintains around 8 out of 10 and is worst when up and ambulating. Pt continues to refuse pain medication d/t increased drowsiness today, stating, "as long as I can sleep, I don't want medication." No further needs reported. Call light in reach. Bed alarm on.
--- NOTE | 2019-10-03 15:20 | NUR ---
Pt has small BM that misses the hat in the toilet for specimen. Will attempt to collect next time.
--- NOTE | 2019-10-03 18:30 | NUR ---
Pt sitting up in bed after eating some of Tomato soup. Pt reports sudden increased nausea she thinks because of the acid, denies nausea medication at this time, states "I'll just try to ride it out." PRN pain medication and pt's home medication administered recently. No further needs reported. Call light in reach. Bed alarm on.
[2019-10-04 04:00] VITALS: BP 106/49; PULSE 84; TEMP 97.8
--- NOTE | 2019-10-04 05:49 | NUR ---
Patient has been up to the bathroom 3 times this shift. Stools is soft, but formed. Patient requested pain medication for left sided flank pain one time this shift. Patient has not had any nausea or vomiting this shift and is tolerating PO intake and meds well.
[2019-10-04 06:14] LABS: BASO # 0.1 (0.0-0.2); BASO % 0.5 % (0.0-2.0); EOS # 0.4 (0.0-0.7); EOS % 2.9 % (0-4.0); GRAN # 11.1 (1.4-6.5); GRAN % 75.9 % (42.2-75.2); LYMPH # 1.9 (1.2-3.4); LYMPH % 12.9 % (20.0-51.0); MEAN CELL VOLUME 90 fl (80.0-100.0); MEAN CORPUSCULAR HGB CONC 32 g/dl (33.0-37.0); MONO # 1.1 (0.1-0.6); MONO % 7.3 % (1.7-9.3); PLATELET COUNT 236 K/mm3 (130-400); RED BLOOD COUNT 3.34 M/mm3 (4.10-5.30); REDCELL DISTRIBUTION WIDTH-CV 14.7 % (11.5-14.5)
[2019-10-04 06:23] LABS: HEMATOCRIT 30.2 % (37.0-47.0); HEMOGLOBIN 9.5 g/dl (12.5-16.0); MEAN CORPUSCULAR HEMOGLOBIN 28 pg (27.0-31.0)
[2019-10-04 06:27] LABS: CALCIUM 8.1 mg/dL (8.4-10.2); CREATININE, serum 0.74 (0.52-1.25); POTASSIUM 4.1 mmol/L (3.4-5.0)
--- NOTE | 2019-10-04 07:15 | NUR ---
Report rcvd from JOHNSON Guadalupe. Pt is in the bathroom at this time. She is still having loose diarrhea stools. Pt has c/o nausea and pain at this time. Medication will be given. Assessment completed. No further concerns at this time.
[2019-10-04 07:38] VITALS: BP 152/51; PULSE 72; TEMP 97.6
[2019-10-04 12:36] VITALS: BP 155/56; PULSE 63; TEMP 98.2
--- NOTE | 2019-10-04 14:33 | NUR ---
JEM contacted the patient via room telephone to complete initial intake. The patient lives alone in [place]. The patient states her a year ago and she her sister last week in [place]. The patient denies DME use and is independent with ADLs. The patient states she has a built-in shower seat in her shower. The patient's PCP is Dr. Tubbs and patient receives medications from [facility]. The patient has advanced directives in the EMR. The patient plans to return home at discharge. There are no additional needs at this time.
[2019-10-04 15:23] VITALS: BP 142/71; PULSE 65; TEMP 97.9
[2019-10-04 19:35] VITALS: BP 172/67; PULSE 58; TEMP 98.3
--- NOTE | 2019-10-04 19:57 | NUR ---
Pt had an uneventful day. She continued to have watery diarrhea throughout the day Q1H. Report given to JOHNSON Camacho.
[2019-10-05] VITALS: BP 167/78; PULSE 56; TEMP 98.1
--- NOTE | 2019-10-05 03:36 | NUR ---
PT RESTING IN BED AT THIS TIME WITH HOB ELEVATED TO 30 DEGREE ANGLE. PT ADVISES THAT SHE HAS BEEN GOING TO THE BATHROOM WITH DIARRHEA EVERY 30 MINUTES IF NOT MORE. PT HAD SOME C/O OF PAIN IN LOWER LEFT QUAD OF ABDOMEN RATED AT 8/10 THAT IS DULL. PT GIVEN NORCO, WHICH PT STATED THAT IT HAD NO EFFECT ON THE PAIN. PT DID ADVISED THAT SHE WAS ABLE TO DRIFT OFF TO SLEEP FOR A LITTLE WHILE. CALL LIGHT WITHIN REACH.
[2019-10-05 05:31] VITALS: BP 177/73; PULSE 66; TEMP 97.7
[2019-10-05 08:00] VITALS: BP 183/73; PULSE 73; TEMP 98.6
[2019-10-05] MEDS ORDERED: VANCOCIN H125 MG/CAP PO (08:08)
[2019-10-05 09:08] LABS: BASO # 0.1 (0.0-0.2); EOS # 0.4 (0.0-0.7); EOS % 5.7 % (0-4.0); GRAN # 4.2 (1.4-6.5); GRAN % 59.2 % (42.2-75.2); LYMPH # 1.8 (1.2-3.4); LYMPH % 25.7 % (20.0-51.0); MEAN CELL VOLUME 89 fl (80.0-100.0); MEAN CORPUSCULAR HGB CONC 32 g/dl (33.0-37.0); MEAN PLATELET VOLUME 11.5 fl (7.4-10.4); MONO # 0.6 (0.1-0.6); MONO % 7.8 % (1.7-9.3); PLATELET COUNT 230 K/mm3 (130-400); RED BLOOD COUNT 4.12 M/mm3 (4.10-5.30); REDCELL DISTRIBUTION WIDTH-CV 14.5 % (11.5-14.5)
[2019-10-05 09:12] LABS: HEMATOCRIT 36.8 % (37.0-47.0); HEMOGLOBIN 11.7 g/dl (12.5-16.0); MEAN CORPUSCULAR HEMOGLOBIN 28 pg (27.0-31.0)
[2019-10-05 09:13] LABS: CALCIUM 9.2 mg/dL (8.4-10.2); CREATININE, serum 0.79 (0.52-1.25); MAGNESIUM 1.6 mg/dL (1.6-2.3); POTASSIUM 4.1 mmol/L (3.4-5.0)
--- NOTE | 2019-10-05 11:18 | NUR ---
SW attended clinical rounds. The patient is to discharge back home today, 10/04. The patient remains on contact precautions. SW then contacted the patient to review discharge plan and discussed home health services. The patient reports that she is not interested in any home health. She states that her daughter, Araseli, is an RN and comes and checks in on her all the time. JEM then read the IM form outloud to the patient. The patient verbalized understanding and gave JEM approval to sign the form on her behalf. No additional needs at this time.
--- NOTE | 2019-10-05 14:47 | NUR ---
PT IS BEING DISCHARGED HOME WITH DAUGHTER CHADWICK CERVANTES. SHE WILL BE GOING TO [place], [place] FOR A PROCEDURE WITH VASCULAR SPECIALTY REFFERED BY HER PCP. PT HAS NO COMPLAINTS.
[2019-10-05] MEDS ORDERED: PROMETHAZINE12.5 M5 PO (15:23)
--- NOTE | 2019-10-05 15:45 | NUR ---
Pt discharged, medication from the medication cabinet has been given to her and pt wheeled out at 1550.
== END 2019-10-05 15:51 | disposition home or self-care (01) | DRG 871 ==
LOC: COL.ER 05:49 → MEDICAL 09:01
PROVIDERS: Emergency Medicine; Nurse Practitioner Family; Physician Assistant; ADMIT Hospitalist
DX: A41.89 Other specified sepsis (principal); J96.01 Acute respiratory failure with hypoxia; A04.72 Enterocolitis due to Clostridium difficile, not specified as recurrent; E87.2 Acidosis; G89.29 Other chronic pain; M54.9 Dorsalgia, unspecified; J44.9 Chronic obstructive pulmonary disease, unspecified; K58.9 Irritable bowel syndrome, unspecified; R73.03 Prediabetes; R65.20 Severe sepsis without septic shock; I10 Essential (primary) hypertension; E87.5 Hyperkalemia; D73.5 Infarction of spleen; D64.9 Anemia, unspecified; Z90.710 Acquired absence of both cervix and uterus; Z79.82 Long term (current) use of aspirin
CPT/HCPCS: 99223-AI; 99232-AI; 99239; A9284; J0360; J0692; J1170; J1650; J2270; J2405; J3010; J7030; Q9967

== ENCOUNTER → 2019-11-14 | Outpatient (CLI) | payer MEDICARE, OTHER ==
[~2019-11-14] VITALS: Ht 154.9 cm; Wt 75.9 kg
[~2019-11-14] MED LIST changes: +PROMETHAZINE12.5 M5 PO; +ZOFRAN 4MG T4 MG/TAB PO
[2019-11-14 09:30] VITALS: BP 141/70; PULSE 84
[2019-11-14 10:25] VITALS: BP 158/75; PULSE 79
== END ==
LOC: COL.RAD 09:00
DX: M54.5 Low back pain (principal)
CPT/HCPCS: J3301

== ENCOUNTER 2020-01-26 17:49 | Emergency (ER) | payer MEDICARE, OTHER ==
[~2020-01-26] VITALS: Ht 160 cm; Wt 75.0 kg
[2020-01-26 17:53] VITALS: BP 168/84; TEMP 97.1
[2020-01-26] MEDS ORDERED: MEDROL 4MG DOSPA4 MG PO (18:21)
[2020-01-26] MEDS ORDERED: LIDODERM 5% PATC1 EA TP (18:21)
[2020-01-26] MEDS ORDERED: NORCO 325 MG-51 TAB PO (18:21)
[2020-01-26 19:23] VITALS: PULSE 77
== END 2020-01-26 19:23 | disposition home or self-care (01) ==
LOC: COL.ER 17:49
DX: M54.5 Low back pain (principal); G89.29 Other chronic pain; Z88.0 Allergy status to penicillin; Z88.2 Allergy status to sulfonamides; Z88.6 Allergy status to analgesic agent; Z88.1 Allergy status to other antibiotic agents
CPT/HCPCS: J1100; J1170; J1885

== ENCOUNTER 2020-02-19 23:56 | Emergency (ER) | payer MEDICARE, OTHER ==
[~2020-02-19] VITALS: Ht 154.9 cm; Wt 75.9 kg
[~2020-02-19 23:56] MED LIST changes: +LIDODERM 5% PATC1 EA TP
[2020-02-20] MEDS ORDERED: LIDODERM 5% PATC1 EA TP (01:05)
[2020-02-20] MEDS ORDERED: ALBUTEROL0.83 MG/ML IH (01:07)
[2020-02-20] MEDS ORDERED: PROAIR HFA0.09 MG/AC IH (01:07)
[2020-02-20] MEDS ORDERED: APOAEQUORIN (01:08)
[2020-02-20] MEDS ORDERED: ASTELIN NASAL S34 ML NS (01:09)
[2020-02-20] MEDS ORDERED: AZO-CRANBERRY450 MG (01:09)
[2020-02-20] MEDS ORDERED: CATAPRES 0.1MG0.1 MG PO (01:11)
[2020-02-20] MEDS ORDERED: CLOTRIMAZOLE VA45 GM (01:12)
[2020-02-20] MEDS ORDERED: PREMARIN VAG42.5 GM VG (01:15)
[2020-02-20] MEDS ORDERED: DIFLUCAN150 MG PO ×2 (01:17→07:35)
[2020-02-20] MEDS ORDERED: RT ADVAIR HFA 1112 G IH (01:18)
[2020-02-20] MEDS ORDERED: MONUROL 3 GM3 G/PKT (01:19)
[2020-02-20 01:20] LABS: PROTHROMBIN TIME 11.5 SECONDS (9.7-12.8)
[2020-02-20] MEDS ORDERED: NORCO 325 MG-101 TAB PO (01:20)
[2020-02-20] MEDS ORDERED: PREVALITE4 GM/5.5 G PO (01:21)
[2020-02-20] MEDS ORDERED: RHINOCORT0.032 MG/1 NS (01:22)
[2020-02-20] MEDS ORDERED: CRESTOR20 MG PO (01:23)
[2020-02-20] MEDS ORDERED: THERACRAN650 MG PO (01:24)
[2020-02-20] MEDS ORDERED: VITAMIN D31000 I1 PO (01:26)
[2020-02-20 01:33] LABS: BASO # 0.1 (0.0-0.2); BASO % 0.6 % (0.0-2.0); EOS # 0.1 (0.0-0.7); EOS % 1.2 % (0-4.0); GRAN # 6.1 (1.4-6.5); GRAN % 68.1 % (42.2-75.2); HEMOGLOBIN 10.7 g/dl (12.5-16.0); LYMPH # 1.5 (1.2-3.4); LYMPH % 16.3 % (20.0-51.0); MEAN CELL VOLUME 86 fl (80.0-100.0); MEAN CORPUSCULAR HEMOGLOBIN 28 pg (27.0-31.0); MEAN CORPUSCULAR HGB CONC 32 g/dl (33.0-37.0); MEAN PLATELET VOLUME 10.4 fl (7.4-10.4); MONO # 1.2 (0.1-0.6); MONO % 13.4 % (1.7-9.3); PLATELET COUNT 275 K/mm3 (130-400); RED BLOOD COUNT 3.89 M/mm3 (4.10-5.30)
[2020-02-20 01:44] LABS: HEMATOCRIT 33.4 % (37.0-47.0)
[2020-02-20 01:46] LABS: ALANINE AMINOTRANSFERASE 19 U/L (4-34); ALBUMIN 3.5 gm/dL (3.5-5.0); ALKALINE PHOSPHATASE 87 U/L (50-136); ANION GAP 7 mmol/L (7-16); AST,SGOT 29 U/L (15-37); BILIRUBIN,TOTAL 0.8 mg/dL (0.0-1.0); BLOOD UREA NITROGEN 16 mg/dL (7-17); CALCIUM 8.9 mg/dL (8.4-10.2); CARBON DIOXIDE 21 mmol/L (22-30); CHLORIDE 108 mmol/L (98-107); CREATINE KINASE 134 U/L (30-135); CREATININE, serum 1.09 (0.52-1.25); GLUCOSE 114 mg/dL (74-106); LIPASE 33 U/L (23-300); MAGNESIUM 1.7 mg/dL (1.6-2.3); POTASSIUM 3.8 mmol/L (3.4-5.0); SODIUM 137 mmol/L (137-145); TOTAL PROTEIN 6.4 gm/dL (6.4-8.2)
[2020-02-20 01:49] LABS: PARTIAL THROMBOPLASTIN TIME 28.3 SECONDS (26.0-37.0)
[2020-02-20 01:58] LABS: TROPONIN-I < 0.012 ng/mL (0.000-0.035)
[2020-02-20 05:41] LABS: COLLECTION METHOD CLEAN CATCH
[2020-02-20 05:46] LABS: PH 6 (5-8); SQUAMOUS EPITHELIAL 0-2 /hpf; URINE APPEARANCE Clear; URINE BACTERIA None Seen /hpf; URINE BILIRUBIN Negative (NEGATIVE); URINE BLOOD Negative (NEGATIVE); URINE COLOR Yellow; URINE GLUCOSE Negative (NEGATIVE); URINE KETONE Negative (NEGATIVE); URINE LEUKOCYTE ESTERASE Negative (NEGATIVE); URINE NITRATE Negative (NEGATIVE); URINE PROTEIN(semi-quant) Negative (NEGATIVE); URINE RBC 0-2 /hpf; URINE UROBILINOGEN Negative (NEGATIVE)
[2020-02-20] MEDS ORDERED: LEVAQUIN 5500 MG/TA1 PO (06:50)
[2020-02-20 07:40] VITALS: BP 141/76; PULSE 73; TEMP 99.1
== END 2020-02-20 07:40 | disposition home or self-care (01) ==
LOC: COL.ER 23:56
PROVIDERS: Emergency Medicine
DX: A09 Infectious gastroenteritis and colitis, unspecified (principal); I10 Essential (primary) hypertension; J44.9 Chronic obstructive pulmonary disease, unspecified; G89.29 Other chronic pain; Z90.710 Acquired absence of both cervix and uterus; Z88.0 Allergy status to penicillin; Z88.2 Allergy status to sulfonamides; Z88.8 Allergy status to other drugs, medicaments and biological substances; Z88.1 Allergy status to other antibiotic agents
CPT/HCPCS: J3010; J7030; Q9967

== ENCOUNTER → 2020-03-14 | Outpatient (CLI) | payer MEDICARE, OTHER ==
[~2020-03-14] MED LIST changes: +APOAEQUORIN; +AZO-CRANBERRY450 MG; +CLOTRIMAZOLE VA45 GM; +CRESTOR20 MG PO; +LEVAQUIN 5500 MG/TA1 PO; +MASON NATURAL2000 IU PO; +MONUROL 3 GM3 G/PKT; +PREMARIN VAG42.5 GM VG; +PREVALITE4 GM/5.5 G PO; +RT ADVAIR HFA 1112 G IH; +THERACRAN650 MG PO; +VITAMIN D31000 I1 PO; +[UNRECOGNIZED DRUG - OTHER]
[2020-03-14 13:31] VITALS: BP 154/79; PULSE 90
[2020-03-14 15:03] VITALS: BP 164/89; PULSE 77
== END ==
LOC: COL.RAD 13:05
DX: M54.5 Low back pain (principal)
CPT/HCPCS: J3301

== ENCOUNTER → 2020-04-26 | Outpatient (CLI) | payer MEDICARE, OTHER ==
[~2020-04-26] VITALS: Ht 154.9 cm; Wt 72.7 kg
[~2020-04-26] MED LIST changes: -AZO-CRANBERRY450 MG; +CALCIUM-MAGNES1 EAC1 PO; +ONE-A-DAY ESSE1 EACH PO
[2020-04-26 08:49] VITALS: BP 124/67; PULSE 84
[2020-04-26 09:36] VITALS: BP 152/65; PULSE 82
== END ==
LOC: COL.RAD 07:40
DX: M54.5 Low back pain (principal); M25.541 Pain in joints of right hand
CPT/HCPCS: J3301; Q9967

== ENCOUNTER → 2020-05-14 | Outpatient (RCR) | payer MEDICARE, OTHER | END | disposition home or self-care (01) | LOC: MKS.ESL.PT | DX: M79.7 Fibromyalgia (principal); M54.42 Lumbago with sciatica, left side ==

== ENCOUNTER 2020-06-20 13:00 | Outpatient (RCR) | payer MEDICARE, OTHER ==
[2020-08-12] MEDS ORDERED: BENTYL 20MG20 MG/TAB PO (17:26)
== END 2020-08-14 | disposition home or self-care (01) ==
LOC: MKS.ESL.PT
DX: M79.7 Fibromyalgia (principal); M54.42 Lumbago with sciatica, left side

== ENCOUNTER → 2020-06-27 | Outpatient (CLI) | payer MEDICARE, OTHER | LOC: COL.RAD 13:48 | DX: I67.82 Cerebral ischemia (principal); H53.9 Unspecified visual disturbance | CPT/HCPCS: A9585 ==

== ENCOUNTER 2020-08-12 12:57 | Emergency (ER) | payer MEDICARE, OTHER ==
[~2020-08-12] VITALS: Ht 155 cm; Wt 72.3 kg
[2020-08-12 13:06] VITALS: TEMP 98
[2020-08-12 14:25] LABS: BASO # 0.1 (0.0-0.2); EOS # 0.3 (0.0-0.7); EOS % 3.7 % (0-4.0); GRAN # 5.5 (1.4-6.5); GRAN % 62.7 % (42.2-75.2); HEMOGLOBIN 11.7 g/dl (12.5-16.0); LYMPH % 23.3 % (20.0-51.0); MEAN CELL VOLUME 89 fl (80.0-100.0); MEAN CORPUSCULAR HEMOGLOBIN 28 pg (27.0-31.0); MEAN CORPUSCULAR HGB CONC 32 g/dl (33.0-37.0); MEAN PLATELET VOLUME 11.2 fl (7.4-10.4); MONO # 0.8 (0.1-0.6); MONO % 8.8 % (1.7-9.3); PLATELET COUNT 335 K/mm3 (130-400); RED BLOOD COUNT 4.12 M/mm3 (4.10-5.30); REDCELL DISTRIBUTION WIDTH-CV 14.1 % (11.5-14.5)
[2020-08-12 14:26] LABS: HEMATOCRIT 36.5 % (37.0-47.0)
[2020-08-12 15:02] LABS: BILIRUBIN,TOTAL 0.2 mg/dL (0.0-1.0); CALCIUM 9.8 mg/dL (8.4-10.2); CREATININE, serum 1.06 (0.52-1.25); POTASSIUM 4.8 mmol/L (3.4-5.0); TOTAL PROTEIN 7.1 gm/dL (6.4-8.2)
[2020-08-12 16:43] LABS: COLLECTION METHOD CLEAN CATCH
[2020-08-12 17:08] LABS: PH 6 (5-8); SQUAMOUS EPITHELIAL None Seen /hpf; URINE APPEARANCE Clear; URINE BACTERIA None Seen /hpf; URINE BILIRUBIN Negative (NEGATIVE); URINE BLOOD Negative (NEGATIVE); URINE COLOR Yellow; URINE GLUCOSE Negative (NEGATIVE); URINE KETONE Negative (NEGATIVE); URINE LEUKOCYTE ESTERASE Negative (NEGATIVE); URINE NITRATE Negative (NEGATIVE); URINE PROTEIN(semi-quant) Negative (NEGATIVE); URINE RBC 0-2 /hpf; URINE UROBILINOGEN Negative (NEGATIVE)
[2020-08-12] MEDS ORDERED: BENTYL 20MG20 MG/TAB PO (17:26)
[2020-08-12 17:38] VITALS: BP 132/78; PULSE 71
== END 2020-08-12 17:45 | disposition home or self-care (01) ==
LOC: COL.ER 12:57
PROVIDERS: Emergency Medicine; Physician Assistant
DX: R10.30 Lower abdominal pain, unspecified (principal); M79.7 Fibromyalgia; D64.9 Anemia, unspecified; Z90.710 Acquired absence of both cervix and uterus; Z88.0 Allergy status to penicillin; Z88.2 Allergy status to sulfonamides; Z88.8 Allergy status to other drugs, medicaments and biological substances; Z88.1 Allergy status to other antibiotic agents
CPT/HCPCS: J0500

== ENCOUNTER → 2020-10-10 | Outpatient (CLI) | payer MEDICARE, OTHER ==
[~2020-10-10] MED LIST changes: +BENTYL 20MG20 MG/TAB PO
== END ==
LOC: COL.RAD 08:40
DX: M79.641 Pain in right hand (principal); M79.642 Pain in left hand
CPT/HCPCS: J3301; Q9967

== ENCOUNTER 2021-01-09 12:45 | Outpatient (RCR) | payer MEDICARE, OTHER | END 2021-01-10 | disposition still patient (30) | LOC: MKS.ESL.PT | DX: M48.07 Spinal stenosis, lumbosacral region (principal); M51.37 Other intervertebral disc degeneration, lumbosacral region; M47.819 Spondylosis without myelopathy or radiculopathy, site unspecified; M79.18 Myalgia, other site ==

== ENCOUNTER → 2021-04-01 | Outpatient (CLI) | payer MEDICARE, OTHER | LOC: COL.RAD 12:36 | DX: M25.541 Pain in joints of right hand (principal); M25.542 Pain in joints of left hand | CPT/HCPCS: J3301 ==

== ENCOUNTER → 2021-06-19 | Outpatient (CLI) | payer MEDICARE, OTHER | LOC: COL.RAD 10:16 | DX: M25.552 Pain in left hip (principal) | CPT/HCPCS: J3301; Q9967 ==

== ENCOUNTER 2023-05-24 15:57 | Inpatient (IN) | payer MEDICARE, OTHER ==
[2023-05-24] VITALS (296 sets, daily range): BP systolic 142–163; BP diastolic 77–83; PULSE 73–79; TEMP 97.5–97.6; O2SAT 78–100
[~2023-05-24] VITALS: Ht 154.9 cm; Wt 81.0 kg
[2023-05-24 16:17] LABS: BASO # 0.1 K/mm3 (0.0-0.2); BASO % 1.3 % (0.0-2.0); EOS # 0.2 K/mm3 (0.0-0.7); EOS % 1.7 % (0.0-4.0); GRAN # 5.4 K/mm3 (1.4-6.5); GRAN % 60.1 % (42.2-75.2); HEMATOCRIT 43.2 % (37.0-47.0); HEMOGLOBIN 14.1 g/dl (12.5-16.0); LYMPH # 2.4 K/mm3 (1.2-3.4); LYMPH % 26.5 % (20.0-51.0); MEAN CELL VOLUME 90 fl (80.0-100.0); MEAN CORPUSCULAR HEMOGLOBIN 29 pg (27-31); MEAN CORPUSCULAR HGB CONC 33 g/dl (33.0-37.0); MEAN PLATELET VOLUME 10.7 fl (7.4-10.4); MONO # 0.9 K/mm3 (0.1-0.6); PLATELET COUNT 324 K/mm3 (130-400); RED BLOOD COUNT 4.81 M/mm3 (4.10-5.30); REDCELL DISTRIBUTION WIDTH-CV 14.5 % (11.5-14.5)
[2023-05-24 16:27] LABS: PROTHROMBIN TIME 10.9 SECONDS (9.7-12.8)
[2023-05-24 16:37] LABS: BILIRUBIN,TOTAL 0.4 mg/dL (0.2-1.2); CALCIUM 10.6 mg/dL (8.4-10.2); CREATININE, serum 1.44 mg/dL (0.57-1.11); POTASSIUM 4.2 mmol/L (3.5-4.5); TOTAL PROTEIN 7.6 gm/dL (6.2-8.1)
[2023-05-24 16:49] LABS: TROPONIN-I 0.068 ng/mL (0.00-0.033)
[2023-05-24] MEDS ORDERED: Nitroglycerin/D5W 250 ML IV ONE (17:00)
[2023-05-24] MEDS ORDERED: Heparin/D5W 250 ML IV SCH ×2 (17:00→18:00)
[2023-05-24] MEDS ORDERED: Heparin 5,000 UNITS/ML 1 ML VIAL IV PRN ×2 (17:00→18:00)
[2023-05-24] MEDS ORDERED: Heparin 5,000 UNITS/ML 1 ML VIAL IV ONE (17:00)
[2023-05-24] MEDS ORDERED: Atorvastatin 40 MG TAB PO ONE ×2 (17:15→18:00)
[2023-05-24] MEDS ORDERED: Clopidogrel 75 MG TAB PO ONE (17:15)
[2023-05-24] MEDS ORDERED: PROTONIX 40MG T40 MG PO (18:11)
--- NOTE | 2023-05-24 18:30 | NUR ---
Pt arrived to room 5 via stretcher. Pt ambulated to bed. Pt A&Ox4. Nitro and heparin infusing per orders, started in ED. Pt c/o chest "pressure" rating at 5/10. Denies any shortness of air. Vital signs are stable. Pt oriented to room. Updated with POC. Call light within reach.
[2023-05-24] MEDS ORDERED: PREVAGEN PO (20:15)
[2023-05-24] MEDS ORDERED: NATURE'S BLE1000 MCG PO (20:17)
[2023-05-24] MEDS ORDERED: COLLAGEN PLUS PO (20:18)
[2023-05-24] MEDS ORDERED: Metoprolol Tartrate 25 MG TAB PO SCH (21:00)
--- NOTE | 2023-05-24 21:51 | NUR ---
PATIENT IS PLEASANT AND DOES NOT APPEAR TO BE IN DISTRESS. ABLE TO AMBULATE WITH STANDBY ASSISTANCE. BLOOD PRESSURE AND HEART RATE WIHTIN NORMAL LIMITS. NITRO AND HEPARIN INFUSING. PATIENT STATES, "IT JUST FEELS LIKE AN ELEPHANT IS SITTING ON MY CHEST", WHEN DISCUSSING PAIN WITH RN. TROPONINS TRENDING UP AT THIS TIME. PATIENT DOES NOT HAVE ANY QUESTIONS OR CONCERNS AT THIS TIME. BED IN LOW POSITION AND CALL LIGHT WITHIN REACH.
--- NOTE | 2023-05-24 23:00 | NUR ---
RN CALLED LAB DUE TO CRITICAL HEPXA. NEITHER RN ON THE UNIT HAD BEEN ASKED TO STOP THE HEPARIN DRIP AND DID NOT SEE LAB IN ROOM. RN NOTED THAT IT APPEARED THE LAB WAS DRAWN ON ARM WITH HEPARIN INFUSING. PRIMARY RN CALLED LAB TO FOR REDRAW TO ENSURE ACCURATE RESULT.
[2023-05-25] VITALS (892 sets, daily range): BP systolic 117–163; BP diastolic 54–94; PULSE 57–72; TEMP 97.1–97.9; O2SAT 68–100
--- NOTE | 2023-05-25 | NUR ---
PATIENT NPO AT THIS TIME FOR POTENTIAL HEART CATH.
--- NOTE | 2023-05-25 05:02 | NUR ---
PATIENT BEGAN HAVING INCREASED CHEST PAIN AT THIS TIME. NITRO GTT ADJUSTED PER PROTOCOL.
--- NOTE | 2023-05-25 06:35 | NUR ---
RN ADMINISTERED 3 DOSES OF SUBLINGUAL NTRO PER ORDER AFTER TRYING TO RESOLVE CHEST PAIN WITH NITRO GTT. CHEST PAIN RESOLVED AFTER THE SUBLINGUAL DOSES.
--- NOTE | 2023-05-25 07:21 | NUR ---
Patient is resting, labs are being drawn at the moment. She is running on heparin and nitro. Chest pressure is controlled this morning. Slight dicomfort noted, no SOA. Will continue to monitor for further changes.
[2023-05-25 07:53] LABS: BASO # 0.1 K/mm3 (0.0-0.2); BASO % 1.4 % (0.0-2.0); EOS # 0.2 K/mm3 (0.0-0.7); EOS % 3.1 % (0.0-4.0); GRAN # 4.3 K/mm3 (1.4-6.5); GRAN % 61.3 % (42.2-75.2); HEMOGLOBIN 12.6 g/dl (12.5-16.0); LYMPH # 1.7 K/mm3 (1.2-3.4); LYMPH % 23.3 % (20.0-51.0); MEAN CELL VOLUME 89 fl (80.0-100.0); MEAN CORPUSCULAR HEMOGLOBIN 29 pg (27-31); MEAN CORPUSCULAR HGB CONC 32 g/dl (33.0-37.0); MEAN PLATELET VOLUME 11.1 fl (7.4-10.4); MONO # 0.7 K/mm3 (0.1-0.6); MONO % 10.5 % (1.7-9.3); PLATELET COUNT 288 K/mm3 (130-400); RED BLOOD COUNT 4.37 M/mm3 (4.10-5.30); REDCELL DISTRIBUTION WIDTH-CV 14.6 % (11.5-14.5)
[2023-05-25 08:14] LABS: CALCIUM 9.5 mg/dL (8.4-10.2); CREATININE, serum 1.24 mg/dL (0.57-1.11); POTASSIUM 4.6 mmol/L (3.5-4.5)
--- NOTE | 2023-05-25 10:08 | NUR ---
Initial visit; Patient thanked Metal Sprayer Production for coming in to visit and offer prayer and God's blessings. Patient thanked [employer] for visiting her throughout the years and said she will keep [employer] in her prayers.
[2023-05-25] MEDS ORDERED: 1/2 NS 1,000 ML IV SCH ×2 (10:15→14:15)
[2023-05-25] MEDS ORDERED: Sucralfate 1 G TAB PO SCH (10:54)
[2023-05-25] MEDS ORDERED: Lidocaine 4% Topical Patch TP SCH (10:55)
[2023-05-25] MEDS ORDERED: [UNRECOGNIZED DRUG - REMARK] NS SCH (10:56)
[2023-05-25] MEDS ORDERED: Olmesartan 20 MG **** subs to Losartan 50 MG PO SCH (10:59)
[2023-05-25] MEDS ORDERED: HYDROcodone/Acetaminophen 10-325 MG TAB PO PRN (11:00)
[2023-05-25] MEDS ORDERED: Losartan 50 MG TAB PO SCH (11:30)
[2023-05-25 11:40] LABS: HEMATOCRIT 40.5 % (37.0-47.0); HEMOGLOBIN 13.1 g/dl (12.5-16.0); MEAN CELL VOLUME 89 fl (80.0-100.0); MEAN CORPUSCULAR HEMOGLOBIN 29 pg (27-31); MEAN CORPUSCULAR HGB CONC 32 g/dl (33.0-37.0); MEAN PLATELET VOLUME 11.3 fl (7.4-10.4); PLATELET COUNT 267 K/mm3 (130-400); RED BLOOD COUNT 4.56 M/mm3 (4.10-5.30); REDCELL DISTRIBUTION WIDTH-CV 14.6 % (11.5-14.5)
[2023-05-25 11:50] LABS: PARTIAL THROMBOPLASTIN TIME 63.9 SECONDS (26.0-37.0)
[2023-05-25 12:03] LABS: CALCIUM 9.3 mg/dL (8.4-10.2); CREATININE, serum 1.19 mg/dL (0.57-1.11); POTASSIUM 4.7 mmol/L (3.5-4.5)
--- NOTE | 2023-05-25 12:06 | NUR ---
See merge for all medication, assessment, intervention, and vital sign times.
[2023-05-25] MEDS ORDERED: PREVAGEN (12:18)
[2023-05-25] MEDS ORDERED: Bivalirudin 250 MG in NS 50 ML IV SCH (13:05)
[2023-05-25] MEDS ORDERED: Nitroglycerin 100 MCG/ML (Cath Lab) 10 ML VIAL IA SCH (13:06)
[2023-05-25] MEDS ORDERED: Heparin 1,000 UNITS/ML 10 ML Multi-Dose VIAL IA SCH (13:07)
[2023-05-25] MEDS ORDERED: Heparin 1,000 UNITS/ML 10 ML Multi-Dose VIAL IV SCH (13:08)
[2023-05-25] MEDS ORDERED: Verapamil 2.5 MG/ML 2 ML VIAL IA SCH (13:09)
[2023-05-25] MEDS ORDERED: fentaNYL 50 MCG/ML 2 ML VIAL IV SCH (13:10)
[2023-05-25] MEDS ORDERED: Midazolam 2 MG/2 ML VIAL IV SCH (13:12)
[2023-05-25] MEDS ORDERED: Iohexol 350 - 100 ML VIAL INCOR ONE (13:14)
[2023-05-25] MEDS ORDERED: Isosorbide Mononitrate CR (24-HR) 60 MG TAB PO SCH (13:32)
[2023-05-25] MEDS ORDERED: Ranolazine ER 500 MG TAB PO SCH (13:32)
--- NOTE | 2023-05-25 13:45 | NUR ---
PATIENT ARRIVED TO [facility] FROM [facility] AT THIS TIME. PATIENT ARRIVED WITH 1/2 NS RUNNING AT 100 ML/HR. RIGHT RADIAL SITE ASSESSED. NO SIGNS OF HEMATOMA OR BLEEDING NOTED. UPON TRANSFER PATIENT NOTED TO HAVE 18ML IN RADIAL BAND. PATIENT STATES THAT SHE HAS NO COMPLAINTS AT THIS TIME. PATIENT FAMILY AT BEDSIDE. DR. JACKSON TO ROUND SHORTLY TO DISCUSS CATH WITH PATIENT/FAMILY.
--- NOTE | 2023-05-25 13:47 | NUR ---
Bedside report given to Carmen ORNELAS. Insertion site reviewed, 0.45%NaCl infusing via dialflow at 100ml/hr. Call light within reach. First set of vitals reviewed, Carmen ORNELAS denies questions/concerns at this time.
--- NOTE | 2023-05-25 14:57 | NUR ---
squadron worker attempted to meet with patient but she was being prepared to go to shrimp pond laborer. SW attempted to meet with patient but was getting imaging completed in her room. SW will follow up.
--- NOTE | 2023-05-25 16:18 | NUR ---
supervisor machine workers met with patient and her friend to discuss discharge planning Patient lives in [place] by herself. Patient has three children, Michael, P# [phone], Araseli, P# [phone] and Diego P# [phone]. PCP is Dr. Tubbs, [facility]. No issues affording medications. DPOA-HC is Araseli as primary then Diego as secondary. No DME and reports to be independent with ADLS. Patient's friends transport her to appointments. Patient reports she has no concerns about returning home but is needing assistance with vacuuming and snow shoveling at her home. SW provided list of community resources from the [facility] agency on aging for private caregivers and chore services. Patient denied needing any caregiver or home health services but could use the chore services. Discharge plan: Home
[2023-05-25] MEDS ORDERED: Formoterol 20 MCG,Budesonide 0.5 MG IH SCH (19:00)
[2023-05-25] MEDS ORDERED: Doxepin 10 MG CAP PO SCH (21:00)
[2023-05-25] MEDS ORDERED: Metoprolol Tartrate 25 MG TAB PO SCH (21:00)
[2023-05-25] MEDS ORDERED: Montelukast 10 MG TAB PO SCH (21:00)
[2023-05-25] MEDS ORDERED: Azelastine 0.1% Nasal Spray 30 ML BOTTLE NS SCH (21:00)
[2023-05-25] MEDS ORDERED: Cetirizine 10 MG TAB PO SCH (21:00)
[2023-05-26] VITALS (915 sets, daily range): BP systolic 114–159; BP diastolic 57–89; PULSE 52–75; TEMP 97–98.4; O2SAT 75–100
[2023-05-26 06:16] LABS: BASO # 0.1 K/mm3 (0.0-0.2); BASO % 0.8 % (0.0-2.0); EOS # 0.3 K/mm3 (0.0-0.7); EOS % 3.3 % (0.0-4.0); GRAN # 6.1 K/mm3 (1.4-6.5); GRAN % 70.4 % (42.2-75.2); HEMOGLOBIN 11.8 g/dl (12.5-16.0); LYMPH # 1.4 K/mm3 (1.2-3.4); MEAN CELL VOLUME 88 fl (80.0-100.0); MEAN CORPUSCULAR HEMOGLOBIN 29 pg (27-31); MEAN CORPUSCULAR HGB CONC 32 g/dl (33.0-37.0); MEAN PLATELET VOLUME 10.5 fl (7.4-10.4); MONO # 0.8 K/mm3 (0.1-0.6); MONO % 9.2 % (1.7-9.3); PLATELET COUNT 269 K/mm3 (130-400); RED BLOOD COUNT 4.12 M/mm3 (4.10-5.30); REDCELL DISTRIBUTION WIDTH-CV 14.6 % (11.5-14.5)
[2023-05-26 06:21] LABS: HEMATOCRIT 36.4 % (37.0-47.0)
[2023-05-26 06:34] LABS: CALCIUM 8.8 mg/dL (8.4-10.2); CREATININE, serum 1.38 mg/dL (0.57-1.11); POTASSIUM 4.7 mmol/L (3.5-4.5)
[2023-05-26] MEDS ORDERED: Fluticasone Nasal 50 MCG/Spray 16 GM BOTTLE NS SCH (09:00)
[2023-05-26] MEDS ORDERED: Multivitamin TAB PO SCH (09:00)
[2023-05-26] MEDS ORDERED: Cholecalciferol (Vit D3) 1000 Units TAB PO SCH (09:00)
--- NOTE | 2023-05-26 10:02 | NUR ---
Follow-up visit; Patient thanked Game Breeding Farm Manager for looking in on her again and leading her to talk about her "healing spirit" and her daily journey with God. Patient very inspiring and was glad to see Dr. Doherty who arrived while she and Game Breeding Farm Manager were talking. Game Breeding Farm Manager wished Elsie well.
[2023-05-26] MEDS ORDERED: LIPITOR 80MG80 MG PO (15:42)
[2023-05-26] MEDS ORDERED: RANEXA 500MG T500 MG PO (15:42)
[2023-05-26] MEDS ORDERED: ISOSORBIDE MON120 MG PO (15:43)
[2023-05-26] MEDS ORDERED: ASPIRIN 81M81 MG/TA2 PO (15:44)
[2023-05-26] MEDS ORDERED: LOPRESSOR 225 MG/TAB PO (15:44)
--- NOTE | 2023-05-26 17:40 | NUR ---
reinforcing iron worker helper was notified patient and her family is uncomfortable with her returning home with a nurse to come in and assist her with establishing her new medications. JEM contacted daughter, Araseli, whom expressed her concerns about patient returning home without home health. Araseli also discussed that it may be beneficial for patient to go to SNF prior to returning home. Araseli expressed she would recommended [facility] for home health or SNF. SW will discuss with patient. JEM provided this information to Dr. Phelan whom expressed patient would stay overnight. also ordered PT and OT to evaluate patient. SW presented Medicare.gov list of options to patient for SNF and Home Health. Patient does not want to go to SNF. Patient would like home health. Patient was uncertain on the agency to chose. JEM contacted patient's daughter, Araseli, to assist patient. Patient and her family chose [facility]. JEM updated patient's nurse. JEM emailed the referral to [facility]. Discharge plan: Home with home health
--- NOTE | 2023-05-26 18:15 | NUR ---
Patient had been ordered and had been ready for discharge approximately 1600. Family member, Araseli Estrella called from [place] and was asking some questions about Ms. Johnson, and stated she was the DPOA. Ms. Marx was frustrated that her mother, Ms. Johnson was being discharge, without ot/pt seeing her and expressed concern that with the medication changes she would not follow directions appropriately. Ms. Estrella requested that I contact a social security specialist to get her home health and/or someone to check on her mother after discharge. I took family members number and contacted social security specialist to relay concerns about discharge. Asked that she would please call the family member and square discharge planning. propeller layout worker reported that family requested pt/ot, rehab and needed home health to check on her. therefore, discharge orders were changed to transfer orders to upstairs Medical room 309. propeller layout worker explained situation and options with patient for approximately 30 minutes. SW reported she will continue working on getting established home health or after discharge care. Will follow up in the am.
--- NOTE | 2023-05-26 19:30 | NUR ---
PATIENT ARRIVED TO ROOM #309 FROM ICU VIA WHEELCHAIR. PATIENT ASSISTED TO BED WITH STAND BY ASSIST. GAIT STEADY. ASSESSMENT COMPLETED. PATIENT TOLERATED WELL. PATIENT DINNER TRAY WARMED UP. LEBRONNET SITTING IN BEDSIDE RECLINER EATING TRAY. ALL NEEDS MET. RECLINER LOCKED AND CALL LIGHT WITHIN REACH.
--- NOTE | 2023-05-26 19:43 | NUR ---
Transfered to medical floor from [facility]. Alert and oriented and in no distress upon transfer. Met receiving RN in the room .
--- NOTE | 2023-05-26 20:15 | NUR ---
PATIENT RESTING IN BEDSIDE RECLINER WITH TV ON WITH NO ACUTE DISTRESS NOTED. PATIENT ON ROOM AIR. INT INTACT TO RIGHT AC WITH NO COMPLICATIONS NOTED. MEDICATION ADMINISTRATION COMPLETED AT THIS TIME. PATIENT TOLERATED WELL. PATIENT REQUESTED DRESSING TO RIGHT RADIAL BE CHANGED. DRESSING CHANGED WITH GAUZE AND NEW TAGADERM APPLIED. PATIENT TOELRATED WELL. ALL NEEDS MET. RECLINER LOCKED AND CALL LIGHT WITHIN REACH.
[2023-05-26] MEDS ORDERED: Metoprolol Tartrate 25 MG TAB PO SCH (21:00)
[2023-05-27 03:50] VITALS: BP 118/54; PULSE 68; TEMP 98.4
--- NOTE | 2023-05-27 06:11 | NUR ---
PATIENT RESTING IN BED WITH NO ACUTE DISTRESS NOTED. PATIENT ON ROOM AIR. MORING MEDICATION ADMINISTRATION COMPLETED. PATIENT TOLERATED WELL. PATIENT STATED " I SLEPT VERY WELL LAST NIGHT." PATIENT GIVEN CUP OF WATER. PATIENT DENIES ANY OTHER NEEDS AT THIS TIME. BED IN LOW POSITION IH WHEELS LOCKED WITH RAILS UP X2 AND CALL LIGHT WITHIN REACH.
[2023-05-27] MEDS ORDERED: Isosorbide Mononitrate CR (24-HR) 60 MG TAB PO SCH (07:00)
[2023-05-27 07:20] LABS: BASO # 0.1 K/mm3 (0.0-0.2); BASO % 0.8 % (0.0-2.0); EOS # 0.3 K/mm3 (0.0-0.7); EOS % 3.5 % (0.0-4.0); GRAN % 64.4 % (42.2-75.2); HEMATOCRIT 38.8 % (37.0-47.0); HEMOGLOBIN 12.7 g/dl (12.5-16.0); LYMPH # 1.5 K/mm3 (1.2-3.4); LYMPH % 20.1 % (20.0-51.0); MEAN CELL VOLUME 88 fl (80.0-100.0); MEAN CORPUSCULAR HEMOGLOBIN 29 pg (27-31); MEAN CORPUSCULAR HGB CONC 33 g/dl (33.0-37.0); MEAN PLATELET VOLUME 11.1 fl (7.4-10.4); MONO # 0.8 K/mm3 (0.1-0.6); MONO % 10.8 % (1.7-9.3); PLATELET COUNT 254 K/mm3 (130-400); RED BLOOD COUNT 4.42 M/mm3 (4.10-5.30); REDCELL DISTRIBUTION WIDTH-CV 14.3 % (11.5-14.5)
[2023-05-27 07:32] LABS: CALCIUM 9.2 mg/dL (8.4-10.2); CREATININE, serum 1.49 mg/dL (0.57-1.11); POTASSIUM 4.6 mmol/L (3.5-4.5)
[2023-05-27 07:45] VITALS: BP 117/65; PULSE 63; TEMP 99.9
--- NOTE | 2023-05-27 10:27 | NUR ---
Patient alert and oriented x4. Shift assessment complete, no new variances noted. Patient complains of baseline pain to her right shoulder/neck area. Lidocaine patch applied per orders. Right radial site CDI. Mood is pleasant, appetite adequate. Patient voices no concerns other than discharge.
[2023-05-27 11:32] VITALS: BP 149/62; PULSE 61; TEMP 97.3
--- NOTE | 2023-05-27 12:43 | NUR ---
Discharge instructions discussed with patient including follow-up appointments, new medications/stopped medications, education packets, and post-cardiac catheterization instructions. Patient verbalized understanding. IV discontinued to right AC with no complications. No telemetry present. Patient escorted out by staff via wheelchair.
--- NOTE | 2023-05-27 13:05 | NUR ---
kiln worker was notified [facility] is able to accept patient and see her this afternoon to get her medications established if she were to discharge this morning. SW notified patient's nurse, hospitalist, speaking unit assembler and patient of the above information. SW reviewed the important message from Medicare with the patient. Patient understood and does not have any questions. Patient signed the form, SW made a copy and placed original in patient's chart. JEM contacted Araseli Yoo, Patient's family friend, whom is going to transport patient home. Araseli Yoo expressed they would head that way shortly. SW notified patient and patient's nurse. JEM emailed discharge orders to [facility]. Discharge Plan: Home with [facility]
== END 2023-05-27 12:30 | disposition home or self-care (01) | DRG 282 ==
LOC: COL.ER 15:57 → ICU 16:59 → IMCU 05-25 14:36 → MEDICAL 05-26 19:32
PROVIDERS: Family Medicine; ADMIT Internal Medicine
PROC: 4A023N7 Measurement of Cardiac Sampling and Pressure, Left Heart, Percutaneous Approach (ICD-10-PCS; principal; 2023-05-25)
PROC: B2111ZZ Fluoroscopy of Multiple Coronary Arteries using Low Osmolar Contrast (ICD-10-PCS; 2023-05-25)
PROC: 02JA3ZZ Inspection of Heart, Percutaneous Approach (ICD-10-PCS; 2023-05-25)
DX: I21.4 Non-ST elevation (NSTEMI) myocardial infarction (principal); I10 Essential (primary) hypertension; R79.89 Other specified abnormal findings of blood chemistry; I25.10 Atherosclerotic heart disease of native coronary artery without angina pectoris; J44.9 Chronic obstructive pulmonary disease, unspecified; Z96.652 Presence of left artificial knee joint; M79.7 Fibromyalgia; K21.9 Gastro-esophageal reflux disease without esophagitis; Z88.1 Allergy status to other antibiotic agents; Z88.3 Allergy status to other anti-infective agents; Z91.041 Radiographic dye allergy status; Z88.0 Allergy status to penicillin; Z88.2 Allergy status to sulfonamides; Z88.8 Allergy status to other drugs, medicaments and biological substances; Z91.018 Allergy to other foods; Z91.048 Other nonmedicinal substance allergy status; Z90.710 Acquired absence of both cervix and uterus; Z87.19 Personal history of other diseases of the digestive system; Z79.899 Other long term (current) drug therapy; Z23 Encounter for immunization
CPT/HCPCS: C1725; C1769; C1887; J0583; J1644; J2250; J2305; J3010; Q9967

== ENCOUNTER 2023-09-03 08:45 | Inpatient (IN) | payer MEDICARE, OTHER ==
[~2023-09-03] VITALS: Ht 154.9 cm; Wt 75.0 kg
[~2023-09-03 08:45] MED LIST changes: +ASPIRIN 81M81 MG/TA2 PO; +COLLAGEN PLUS PO; +ISOSORBIDE MON120 MG PO; +LIPITOR 80MG80 MG PO; +LOPRESSOR 225 MG/TAB PO; +NATURE'S BLE1000 MCG PO; +PREVAGEN PO; +RANEXA 500MG T500 MG PO
[2023-09-03] MEDS ORDERED: NS 1,000 ML IV ONE (09:00)
[2023-09-03] MEDS ORDERED: Iohexol 300 - 100 ML VIAL IV ONE (09:03)
[2023-09-03] MEDS ORDERED: NS 100 ML IV SCH (09:04)
[2023-09-03 09:09] LABS: BASO # 0.1 K/mm3 (0.0-0.2); BASO % 0.9 % (0.0-2.0); EOS # 0.4 K/mm3 (0.0-0.7); EOS % 4.3 % (0.0-4.0); GRAN % 69.3 % (42.2-75.2); HEMATOCRIT 37.5 % (37.0-47.0); HEMOGLOBIN 12.4 g/dl (12.5-16.0); LYMPH # 1.3 K/mm3 (1.2-3.4); LYMPH % 14.9 % (20.0-51.0); MEAN CELL VOLUME 90 fl (80.0-100.0); MEAN CORPUSCULAR HEMOGLOBIN 30 pg (27-31); MEAN CORPUSCULAR HGB CONC 33 g/dl (33.0-37.0); MEAN PLATELET VOLUME 9.9 fl (7.4-10.4); MONO # 0.9 K/mm3 (0.1-0.6); MONO % 10.1 % (1.7-9.3); PLATELET COUNT 274 K/mm3 (130-400); RED BLOOD COUNT 4.19 M/mm3 (4.10-5.30)
[2023-09-03 09:25] LABS: ALBUMIN 3.5 g/dL (3.4-4.8); BILIRUBIN,TOTAL 0.8 mg/dL (0.2-1.2); CALCIUM 9.6 mg/dL (8.4-10.2); CREATININE, serum 1.55 mg/dL (0.57-1.11); POTASSIUM 5.7 mEq/L (3.5-4.5); TOTAL PROTEIN 6.8 g/dl (6.2-8.1)
[2023-09-03 09:29] LABS: PROTHROMBIN TIME 10.6 SECONDS (9.7-12.8)
[2023-09-03 11:07] LABS: COLLECTION METHOD CLEAN CATCH
[2023-09-03 11:15] LABS: PH 6.5 (5.0-8.5); URINE APPEARANCE CLEAR (CLEAR/HAZY); URINE BLOOD NEGATIVE (NEGATIVE); URINE COLOR YELLOW (YELLOW); URINE GLUCOSE NEGATIVE (NEGATIVE); URINE KETONE NEGATIVE (NEGATIVE); URINE NITRATE NEGATIVE (NEGATIVE); URINE PROTEIN(semi-quant) NEGATIVE (NEGATIVE); URINE UROBILINOGEN 0.2 E.U/dL (0.2-1.0)
[2023-09-03] MEDS ORDERED: NORVASC2.5 MG PO (13:09)
[2023-09-03] MEDS ORDERED: NS 1,000 ML IV SCH (14:30)
[2023-09-03] MEDS ORDERED: Ondansetron 4 MG/2 ML VIAL IV PRN (14:30)
[2023-09-03] MEDS ORDERED: Sodium Zirconium Cyclosilicate for Oral Susp 10 GM PACKET PO SCH (14:56)
[2023-09-03] MEDS ORDERED: cefTRIAXone 1 G in Water For Injection,Sterile 10 ML IV SCH (15:00)
[2023-09-03] MEDS ORDERED: Ranolazine ER 500 MG TAB PO SCH (15:01)
[2023-09-03] MEDS ORDERED: Lidocaine 4% Topical Patch TP PRN (15:15)
[2023-09-03] MEDS ORDERED: Clopidogrel 75 MG TAB PO SCH (16:03)
[2023-09-03 16:05] LABS: MAGNESIUM 1.8 mg/dL (1.6-2.6); PHOSPHOROUS 3.6 mg/dL (2.3-4.7)
[2023-09-03 16:22] LABS: TROPONIN-I < 0.010 ng/mL (0.00-0.033)
[2023-09-03] MEDS ORDERED: FLONASE NASAL S16 GM NS (16:22)
[2023-09-03 16:47] VITALS: BP_SYST 173
[2023-09-03 17:00] VITALS: BP 173/76; PULSE 86; TEMP 97.4
[2023-09-03] MEDS ORDERED: Formoterol 20 MCG,Budesonide 0.5 MG IH SCH (19:00)
--- NOTE | 2023-09-03 19:40 | NUR ---
Patient admitted to unit around 1500. Patient alert and oriented x4, denies increase in pain. Following verbal commands. Patient states she feels better than earlier and like she "has come out of a fog." Hand firer automatic stoker equal, no arm drift noted, able to lift both legs off of bed but left leg noted to not be able to lift as high. Able to push on hands with both feet. No facial drooping noted, speech clear. Skin is intact. Patient requested to go to bathroom, transferred x1 assist to bedside commode. Tolerated well. Patient required reminders to take it slow due to left leg unsteadiness. Able to ambulate from bed to sink with minimal difficulty. Call light within reach, all needs met at this time.
--- NOTE | 2023-09-03 19:43 | NUR ---
At approximately 1630 patient complained of IV site to right forearm burning. IV site noted to be red, warm, and swollen. IV fluids turned off and IV site discontinued. Left upper extremity elevated and warm compress applied. Attempted x2 to obtain new IV site with no success. JOHNSON Luis from ER called and new IV placed to left forearm. NS infusing per orders through new IV site. Patient remains stable at this time and is tolerating food and fluids well. Bedside swallow study complete, no dysphagia symptoms noted. Patient was sitting up right 90 degrees at edge of bed, drank water with no complications. No coughing, drooling, or voice changes noted. Family at bedside at this time. Call light within reach, all needs met at this time.
[2023-09-03 19:46] VITALS: BP 156/68; PULSE 66; TEMP 97.7
[2023-09-03 20:30] VITALS: BP_SYST 156
--- NOTE | 2023-09-03 20:30 | NUR ---
Patient resting in bed with family at bedside. Denies any pain at this time. Assissted patient to bathroom and back to bed. Needs met. Assessment complete. IV in left forearm flushes easily with no complications. Neuro and stroke assessment complete. Call light and personal items in reach. Bed in low position and bed alarm on.
[2023-09-03] MEDS ORDERED: Montelukast 10 MG TAB PO SCH (21:00)
[2023-09-03] MEDS ORDERED: Doxepin 10 MG CAP PO SCH (21:00)
[2023-09-03] MEDS ORDERED: Metoprolol Tartrate 25 MG TAB PO SCH (21:00)
[2023-09-03 23:29] VITALS: BP 122/59; PULSE 75; TEMP 97.6
[2023-09-04] VITALS (11 sets, daily range): BP systolic 122–159; BP diastolic 49–79; PULSE 69–90; TEMP 97.8–98.1
--- NOTE | 2023-09-04 05:20 | NUR ---
Patient resting in bed. Denies any pain or needs at this time. Patients neuro and stroke assessments have been normal and unchanged over night. Patient remains alert and oriented and only weakness is a slight limp to the left leg when walking that has improved over night and patient stating her left eye feels off. Call light and personal items in reach. Bed in low position and bed alarm on.
[2023-09-04 06:06] LABS: BASO # 0.1 K/mm3 (0.0-0.2); BASO % 0.8 % (0.0-2.0); EOS # 0.4 K/mm3 (0.0-0.7); EOS % 4.9 % (0.0-4.0); GRAN # 4.9 K/mm3 (1.4-6.5); GRAN % 68.9 % (42.2-75.2); HEMOGLOBIN 10.8 g/dl (12.5-16.0); LYMPH # 1.1 K/mm3 (1.2-3.4); LYMPH % 15.1 % (20.0-51.0); MEAN CELL VOLUME 88 fl (80.0-100.0); MEAN CORPUSCULAR HEMOGLOBIN 29 pg (27-31); MEAN CORPUSCULAR HGB CONC 33 g/dl (33.0-37.0); MEAN PLATELET VOLUME 10.6 fl (7.4-10.4); MONO # 0.7 K/mm3 (0.1-0.6); MONO % 9.9 % (1.7-9.3); PLATELET COUNT 259 K/mm3 (130-400); RED BLOOD COUNT 3.71 M/mm3 (4.10-5.30)
[2023-09-04 06:10] LABS: HEMATOCRIT 32.6 % (37.0-47.0)
[2023-09-04 06:27] LABS: CALCIUM 8.7 mg/dL (8.4-10.2); CREATININE, serum 1.3 mg/dL (0.57-1.11); POTASSIUM 4.8 mEq/L (3.5-4.5)
[2023-09-04] MEDS ORDERED: Isosorbide Mononitrate CR (24-HR) 60 MG TAB PO SCH (07:00)
--- NOTE | 2023-09-04 10:09 | NUR ---
PATIENT SITTING UP IN BED. MORNING MEDICATIONS ADMINISTERED. SHIFT ASSESSMENT COMPLETED. PATIENT BELIEVES SHE IS BASELINE FUNCTIONALLY. SHE DOES REPORT A WEIRD SENSATION ABOVE HER L EYE. FOLLOWS COMMANDS, ANSWERS QUESTIONS APPROPRIATELY, STRENGTH EQUAL IN ALL EXTREMITIES. UPDATED PATIENT AND FAMILY ON PLAN OF CARE.
--- NOTE | 2023-09-04 11:02 | NUR ---
D: Initial visit: Event Coordinator stopped by room on rounds. A: Pt was resting and content. Pt asked for prayer, mouthpiece maker prayed with pt. Pt appreciated the visit. P: Event Coordinator informed pt that if she needed anything from the mouthpiece maker area to let her nurse know. Event Coordinator will follow up as needed.
--- NOTE | 2023-09-04 15:44 | NUR ---
Greenhouse Manager met with patient and her friend, Yvonne at bedside to discuss discharge planning. Yvonne advised she is a "step in" as patient's children live out of state. Patient lives alone in [place] and sees Dr. Tubbs for primary care. Patient gets her medications from [facility] [address] and reported no concerns for cost. Patient has a cane if needed, but advised PT left her a FWW and recommend she use it. Patient does not have a FWW at home and is agreeable to have one ordered. JEM contacted [facility] and faxed referral along with a prescription for FWW. Patient is normally independent with ADLS and plans to return home at time of discharge. Patient stated her daughter, Araseli is DPOA-HC. JEM provided patient and Yvonne her phone number which Yovnne stated she would share with Araseli. Outpatient PT is also recommended for patient and she would like to do this at [facility]. JEM faxed referral to [facility] for review. Discharge Plan: Home with OP PT, FWW ordered.
[2023-09-05 00:06] VITALS: BP 133/67; PULSE 81; TEMP 97.8
[2023-09-05 04:03] VITALS: BP 176/70; PULSE 62; TEMP 97.6
[2023-09-05 04:20] VITALS: BP_SYST 176
[2023-09-05 06:37] LABS: CALCIUM 9.2 mg/dL (8.4-10.2); CREATININE, serum 1.3 mg/dL (0.57-1.11); MAGNESIUM 1.6 mg/dL (1.6-2.6); POTASSIUM 5.1 mEq/L (3.5-4.5)
[2023-09-05 07:46] VITALS: BP 160/71; PULSE 71; TEMP 97.6
[2023-09-05 08:30] VITALS: BP_SYST 160
[2023-09-05] MEDS ORDERED: Patient's Own Medication Item PO SCH (09:00)
--- NOTE | 2023-09-05 09:31 | NUR ---
PATIENT RESTING IN BED UPON ENTERING ROOM. MORNING MEDICATIONS ADMINISTERED. PATIENT BELIEVES SHE IS AT HER BASELINE, AMBULATES AROUND ROOM WELL WITH MINIMAL ASSISTANCE, FOLLOWS COMMANDS, AND ANSWERS QUESTIONS APPROPRIATELY. PATIENT IS HOPING TO DISCHARGE HOME TODAY. FALL PRECAUTIONS IN PLACE, CALL LIGHT WITHIN REACH. WILL CONTINUE TO MONITOR.
[2023-09-05] MEDS ORDERED: PLAVIX 75MG TAB75 MG PO (10:39)
[2023-09-05] MEDS ORDERED: ASPIRIN 81M81 MG/TA2 PO (10:40)
--- NOTE | 2023-09-05 11:50 | NUR ---
IV AND TELEMETRY DISCONTINUED. DISCHARGE INSTRUCTIONS REEVIEWED, SON AT BEDSIDE, ALL QUESTIONS ANSWERED. PATIENT ESCORTED OFF OF UNIT BY VIA REENA STAFF.
--- NOTE | 2023-09-05 13:11 | NUR ---
SW informed that patient would be discharging. SW confirmed walker deliver with staff at [facility] and patient and family requested to be delivered to home.
== END 2023-09-05 11:51 | disposition home or self-care (01) | DRG 556 ==
LOC: COL.ER 08:45 → MEDICAL 11:19
PROVIDERS: Nurse Practitioner Family; Personal Emergency Response Attendant; ADMIT Internal Medicine
DX: R29.898 Other symptoms and signs involving the musculoskeletal system (principal); N39.0 Urinary tract infection, site not specified; E87.1 Hypo-osmolality and hyponatremia; N17.9 Acute kidney failure, unspecified; J44.9 Chronic obstructive pulmonary disease, unspecified; E87.5 Hyperkalemia; N18.30 Chronic kidney disease, stage 3 unspecified; I12.9 Hypertensive chronic kidney disease with stage 1 through stage 4 chronic kidney disease, or unspecified chronic kidney disease; I25.10 Atherosclerotic heart disease of native coronary artery without angina pectoris; I51.89 Other ill-defined heart diseases; E78.5 Hyperlipidemia, unspecified; K21.9 Gastro-esophageal reflux disease without esophagitis; G89.29 Other chronic pain; M79.7 Fibromyalgia; Z66 Do not resuscitate
CPT/HCPCS: A9270; J0696; J1650; J7030; Q3014; Q9967

== ENCOUNTER 2023-11-02 17:38 | Emergency (ER) | payer MEDICARE, OTHER ==
[~2023-11-02] VITALS: Ht 154.9 cm; Wt 74.1 kg
[~2023-11-02 17:38] MED LIST changes: +FLONASE NASAL S16 GM NS; +NORVASC2.5 MG PO
[2023-11-02 17:49] VITALS: TEMP 98.2
[2023-11-02 18:29] LABS: BASO # 0.1 K/mm3 (0.0-0.2); BASO % 0.6 % (0.0-2.0); EOS # 0.2 K/mm3 (0.0-0.7); EOS % 2.5 % (0.0-4.0); GRAN # 6.3 K/mm3 (1.4-6.5); GRAN % 68.2 % (42.2-75.2); HEMATOCRIT 38.8 % (37.0-47.0); HEMOGLOBIN 12.7 g/dl (12.5-16.0); LYMPH # 1.7 K/mm3 (1.2-3.4); LYMPH % 17.9 % (20.0-51.0); MEAN CELL VOLUME 89 fl (80.0-100.0); MEAN CORPUSCULAR HEMOGLOBIN 29 pg (27-31); MEAN CORPUSCULAR HGB CONC 33 g/dl (33.0-37.0); MEAN PLATELET VOLUME 10.6 fl (7.4-10.4); MONO % 10.5 % (1.7-9.3); PLATELET COUNT 259 K/mm3 (130-400); RED BLOOD COUNT 4.37 M/mm3 (4.10-5.30)
[2023-11-02] MEDS ORDERED: NS 1,000 ML IV ONE (18:30)
[2023-11-02 18:48] LABS: ALBUMIN 3.7 g/dL (3.4-4.8); BILIRUBIN,TOTAL 0.6 mg/dL (0.2-1.2); CALCIUM 10.2 mg/dL (8.4-10.2); CREATININE, serum 1.65 mg/dL (0.57-1.11); POTASSIUM 4.4 mEq/L (3.5-4.5)
[2023-11-02 20:17] LABS: COLLECTION METHOD CLEAN CATCH
[2023-11-02 20:22] LABS: PH 5.5 (5.0-8.5); URINE APPEARANCE CLEAR (CLEAR/HAZY); URINE BLOOD NEGATIVE (NEGATIVE); URINE COLOR YELLOW (YELLOW); URINE GLUCOSE NEGATIVE (NEGATIVE); URINE KETONE NEGATIVE (NEGATIVE); URINE NITRATE NEGATIVE (NEGATIVE); URINE PROTEIN(semi-quant) NEGATIVE (NEGATIVE); URINE UROBILINOGEN 0.2 E.U/dL (0.2-1.0)
[2023-11-02 21:03] VITALS: BP 142/111; PULSE 60
== END 2023-11-02 21:05 | disposition home or self-care (01) ==
LOC: COL.ER 17:38
PROVIDERS: Physician Assistant
DX: R10.9 Unspecified abdominal pain (principal); Z79.02 Long term (current) use of antithrombotics/antiplatelets
CPT/HCPCS: J7030

== ENCOUNTER → 2023-12-23 | Outpatient (CLI) | payer MEDICARE, OTHER | LOC: COL.RAD 09:23 | DX: M47.26 Other spondylosis with radiculopathy, lumbar region (principal); M48.061 Spinal stenosis, lumbar region without neurogenic claudication ==

== ENCOUNTER → 2024-01-12 | Outpatient (CLI) | payer MEDICARE, OTHER | LOC: MHCPAIN 12:53 | DX: M54.16 Radiculopathy, lumbar region (principal); M41.86 Other forms of scoliosis, lumbar region; M47.896 Other spondylosis, lumbar region | CPT/HCPCS: G0463 ==

== ENCOUNTER → 2024-02-18 | Outpatient (CLI) | payer MEDICARE, OTHER ==
[~2024-02-18] MED LIST changes: +Iohexol 300 - 10 ML VIAL ONE; +Lidocaine PF 2% (20 MG/ML) 2 ML VIAL ONE
== END ==
LOC: MHCPAIN 11:58
DX: M54.16 Radiculopathy, lumbar region (principal)
CPT/HCPCS: J1100; Q9967

== ENCOUNTER → 2024-03-09 | Outpatient (CLI) | payer MEDICARE, OTHER ==
[~2024-03-09] MED LIST changes: -Iohexol 300 - 10 ML VIAL ONE; -Lidocaine PF 2% (20 MG/ML) 2 ML VIAL ONE
== END ==
LOC: MHCPAIN 09:07
DX: M47.816 Spondylosis without myelopathy or radiculopathy, lumbar region (principal); M41.86 Other forms of scoliosis, lumbar region; M48.061 Spinal stenosis, lumbar region without neurogenic claudication
CPT/HCPCS: G0463

== ENCOUNTER 2024-04-01 11:15 | Outpatient (RCR) | payer MEDICARE, OTHER | END 2024-04-09 | disposition home or self-care (01) | LOC: MKS.ESL.PT | DX: M48.061 Spinal stenosis, lumbar region without neurogenic claudication (principal) ==